=== PATIENT | male | born 1940 | race Caucasian/White ===

== ENCOUNTER → 2021-09-30 | Outpatient (CLI) | payer MEDICARE, SELFPAY ==
--- NOTE | 2021-09-30 15:22 | MRI_ITS ---
STUDY: MRI BRAIN WITH AND WITHOUT CONTRAST (ATTENTION INTERNAL AUDITORY CANALS - I.A.C.''s) REASON FOR EXAM: Male, 80 years old. DIZZINESS, ATTN IAC''S TECHNIQUE: Standardized multiplanar fat and water weighted pulse sequences were obtained. 15 mL of IV Dotarem was administered for the contrast portion of the examination. COMPARISON: None. FINDINGS: Normal bilateral temporal bones. Normal bilateral internal auditory canals. There is no demonstrated intracanalicular or cisternal vestibular schwannoma (acoustic neuroma). There is no enhancement of the bilateral VIIth or VIIIth cranial nerves. Normal bilateral cochlea, vestibules and semicircular canals. Normal size of the ventricles and extra-axial spaces for the patient''s age. Normal white matter tracts of the supratentorial brain. Normal bilateral basal ganglia. Normal thalami. Normal flow voids within the major intracranial circulation suggesting patency by spin echo criteria. Normal venous enhancement. There is no enhancing intra-axial or extra-axial abnormality. There is no extra-axial fluid accumulation. Normal sella turcica, pituitary gland, infundibular stalk, optic chiasm and hypothalamus. Normal tectal plate and pineal gland. Normal midbrain, neelam and medulla. Normal cerebellum. Normal basal cisterns. No demonstrated orbital abnormality, within the constraints of a routine brain study. Normal visualized paranasal sinuses. Normal calvarium and skull base. Normal visualized soft tissue structures. Normal visualized upper cervical spine. MRI/Brain W/WO Contrast IMPRESSION: Normal unenhanced and enhanced MRI of the bilateral internal auditory canals (I.A.C''s). Electronically Signed: Steffen Singh MD at 8:37 EDT ,
[2021-10-01 10:55] LABS: CREATININE FINGERSTICK < 0.9 mg/dL (0.70-1.30); EGFR FINGERSTICK > 60.0000 mL/min (>60)
== END | disposition home or self-care (01) ==
PROVIDERS: PCP Family Medicine; Visit Provider Otolaryngology
DX: Z01.812 Encounter for preprocedural laboratory examination (principal); R42 Dizziness and giddiness
CPT/HCPCS: 70553; A9575

== ENCOUNTER → 2023-05-30 | Outpatient (CLI) | payer MEDICARE, SELFPAY ==
[2023-05-30 17:17] LABS: Absolute Lymphocyte Count 1.51 X10^3/uL (0.83-4.51); Absolute Neutrophil Count 4.1 X10^3/uL (2.0-7.7); Basophil# 0.02 X10^3/uL; Basophil% 0.3 % (0-1); Eosinophil# 0.13 X10^3/uL; Hematocrit 40.4 % (40-54); Hemoglobin 13.2 g/dL (13.0-16.5); Lymphocyte # 1.51 X10^3/ul (0.83-4.51); Lymphocyte % 23.7 % (19-41); Mean Corp Hgb Conc 32.7 g/dL (32-36); Mean Corpuscular Hgb 30.5 pg (27.0-32.0); Mean Corpuscular Volume 93.3 fL (80-94); Mean Platelet Vol. 8.6 fl (6.2-12.0); Monocyte# 0.58 X10^3/uL; Monocyte% 9.1 % (0-10); NRBC Flagged by Analyzer 0 % (0-5); Neutrophil # 4.11 X10^3/uL (2.7-7.7); Neutrophil % 64.6 % (47-70); Platelet Count 240 K/mm3 (150-450); RBC Distribution Width SD 41.5 fl (35.1-43.9); Red Blood Count 4.33 M/mm3 (4.6-6.2); White Blood Count 6.4 K/mm3 (4.4-11.0)
[2023-05-30 17:46] LABS: ALB/GLOB Ratio 1.2 RATIO (0.9-2.4); AST(SGOT) 22 U/L (15-37); Alanine Aminotransfer ALT/SGPT 21 U/L (16-61); Albumin, Serum 3.8 g/dL (3.2-5.0); Alkaline Phosphatase 62 U/L (45-117); Anion Gap 5 (5-15); BUN 18 mg/dL (7-18); BUN/Creat Ratio 14.6 RATIO (10-20); Chloride 105 mmol/L (98-107); Cholesterol 142 mg/dL (200); Creatinine, Serum 1.23 mg/dL (0.70-1.30); EST Glomerular Filtration Rate 60 mL/min (>60); Est Glom Filt Rate - Afr Amer 72 mL/min (>60); Globulin 3.2 g/dL (2.2-4.2); Glucose 86 mg/dL (74-106); High Density Lipoprotein 47 mg/dL; PSA,Total - Annual Screen 2.61 ng/mL (0.00-4.00); Sodium Level 139 mmol/L (136-145); Thyroid Stim Hormone (TSH) 4.99 uIU/mL (0.358-3.74); Triglycerides 103 mg/dL; Very Low Density Lipoprotein 21 mg/dL (5-40)
[2023-05-30 19:49] LABS: Hepatitis C Antibody Non-Reactive (Nonreactive)
--- OUTSIDE RECORDS SUMMARY | 2023-05-31 02:58 | XMS RPT_ITS | CCD ---
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 Disease Father - Psychiatry Mother Dementia Medications: Current Outpatient Medications Medication Sig Dispense Refill - acetaminophen (TYLENOL ARTHRITIS PAIN) 650 mg CR tablet Take 650 mg by mouth four times daily. Takes 1.5 capsules 4 times a day - MILK THISTLE ORAL Take by mouth. - TURMERIC ORAL Take by mouth. - vitamin C-biotin 50 mg -1,250 mcg chew Take by mouth. - lisinopril (ZESTRIL, PRINIVIL) 20 mg tablet TAKE 1 TABLET DAILY 90 tablet 4 - triamcinolone acetonide (NASACORT AQ) 55 mcg nasal inhaler Use 2 Sprays in t (more content not included)... [facility] 04-21-2020 Note Patient Outreach (CO OCC3) DAMON DEE ([id number]) 1940 M Date Time Provider Department 04/21/20 AVIS REA During your visit today, we recorded the following information about you: Allergies As of Date: 04/21/2020 Noted Allergy Reaction BACTRIM (SULFAMETHOXAZOLE-TRIMETH*2015 2 - Rash IODINE 02/16/2016 4 - Hives MORPHINE 01/12/2016 14 - Other: See Comments Comments: nausea TETANUS ANTITOXIN 04/04/2001 4 - Hives Date Reviewed: 02/27/2020 Reviewed by: Mariaa Foster RN - Fully Assessed Order(s):SARS-COVID VACCINE 1ST DOSE APPT [[id number]] Order #: [id number] FUTURE Prescriptions as of 04/21/2020 Sig: ACETAMINOPHEN ER 650 MG TABLE* Take 650 mg by mouth four zackery* MILK THISTLE ORAL Take by mouth. TURMERIC ORAL Take by mouth. VITAMIN C 50 MG-BIOTIN 1,250 * Take by mouth. LISINOPRIL 20 MG TABLET TAKE 1 TABLET DAILY TRIAMCINOLONE ACETONIDE 55 MC* Use 2 Sprays in the nose once* CHOLECALCIFEROL (VITAMIN D3) * once daily. 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] 09/10/2001 Pain in joint, lower leg [M25.569] 09/10/2001 JOINT DERANGMNT NEC-FOREARM [[id number]] 09/10/2001 Closed fracture of part of tibia [S82.209A] 01/11/2016 Triquetral chip fracture [S62.113A] 04/22/2016 Hypertension, essential [I10] 01/28/2017 Neck pain [M54.2] 01/28/2017 Pulmonary nodule [R91.1] 04/25/2017 Chronic insomnia [F51.04] 07/20/2017 Vertigo [R42] 10/11/2017 Vasomotor rhinitis [J30.0] 04/12/2018 Chronic kidney disease (CKD), stage II (mild) [*10/11/2018 Left elbow pain [M25.522] 04/12/2019 Vitamin D deficiency [E55.9] 04/12/2019 Lipomas [D17.9] 10/01/2019 Letter Text Encounter Status:Closed by EPIC, PRODUSER on 04/24/20 [facility] Diagnosis Hypertension, essential Unspecified essential hypertension documented in this encounter [facility]* Diagnosis Hypertension, essential Unspecified essential hypertension [facility] Diagnosis Chronic kidney disease (CKD), stage II (mild)- Primary Chronic kidney disease, Stage II (mild) [facility]* Diagnosis Hypertension, essential Unspecified essential hypertension documented in this encounter [facility] Summary Purpose Family History No Family History Records FoundNo Family History Records FoundNo Family History Records FoundNo Family History Records FoundNo Family History Records FoundNo Family History Records FoundNo Family History Records Found Advance Directives Documents on File Type Date Recorded 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 Expl anation Advance Directive(s) 11/21/2017 12:07 PM Additional Source Comments (unrecognized sect ion and content) No Status Records FoundNo Status Records FoundNo Status Records FoundNo Status Records FoundNo Status Records FoundNo Status Records FoundNo Status Records Found INFORMATION SOURCE (unrecogn ized section and content) DATE CREATED AUTHOR AUTHOR'S ORGANIZ ATION 08/11/2018 [facility] DATE CREATED AUTHOR AUTHOR'S ORGANIZ ATION 11/11/2019 [facility] DATE CREATED AUTHOR AUTHOR'S ORGANIZ ATION 04/11/2020 [facility] DATE CREATED AUTHOR AUTHOR'S ORGANIZ ATION 05/28/2020 [facility] DATE CREATED AUTHOR AUTHOR'S ORGANIZ ATION 04/18/2021 [facility] DATE CREATED AUTHOR AUTHOR'S ORGANIZ ATION 12/18/2021 [facility] Source Comments (unrecognize d section and content) In the event this informatio n is protected by the Federal Confidentiality of Alcohol and Drug Abuse Patient Records regulations: The Federal rules restrict any use of the information to criminally investigate or prosecute any alcohol or drug abuse patient.[facility] the event this information is protected by the Federal Confidentiality of Alcohol and Drug Abuse Patient Records regulations: The Federal rules restrict any use of the information to criminally investigate or prosecute any alcohol or drug abuse patient.[facility] the event this information is protected by the Federal Confidentiality of Alcohol and Drug Abuse Patient Records regulations: The Federal rules restrict any use of the information to criminally investigate or prosecute any alcohol or drug abuse patient.[facility] the event this information is protected by the Federal Confidentiality of Alcohol and Drug Abuse Patient Records regulations: The Federal rules restrict any use of the information to criminally investigate or prosecute any alcohol or drug abuse patient.[facility] the event this information is protected by the Federal Confidentiality of Alcohol and Drug Abuse Patient Records regulations: The Federal rules restrict any use of the information to criminally investigate or prosecute any alcohol or drug abuse patient.[facility] the event this information is protected by the Federal Confidentiality of Alcohol and Drug Abuse Patient Records regulations: The Federal rules restrict any use of the information to criminally investigate or prosecute any alcohol or drug abuse patient.[facility] Reason for Visit (unrecogniz ed section and content) Reason Onset Date Comments Refill Request 10/15/2021 Reason Comments Results Reason Onset Date Comments Refill Request 11/26/2021 Reason Comments Lab Orders Care Teams (unrecognized sec tion and content) Ship'S Surveyor Relationship Specialty Start Date End Date Vale Parisi DO PCP - General 08/07/15 Ship'S Surveyor Relationship Specialty Start Date End Date Vale Parisi DO PCP - General 08/07/15 Ship'S Surveyor Relationship Specialty Start Date End Date Vale Parisi DO PCP - General 08/07/15 Ship'S Surveyor Relationship Specialty Start Date End Date Vale Parisi DO PCP - General 08/07/15 Ship'S Surveyor Relationship Specialty Start Date End Date Isak, Vale Jacques DO PCP - General 08/07/15 FOR RECORDS PERTAINING TO PATIENTS WHO ARE OR HAVE BEEN ENROLLED IN A CHEMICAL DEPENDENCY/SUBSTANCEABUSE PROGRAM, SOME INFORMATION MAY BE OMITTED. This clinical summary was aggregated from multiple sources. Caution should be exercised in using it in the provision of clinical care. This summary normalizes information from multiple sources, and as a consequence, information in this document may materially change the coding, format and clinical context of patient data. In addition, data may be omitted in some cases. CLINICAL DECISIONS SHOULD BE BASED ON THE PRIMARY CLINICAL RECORDS. [employer] provides no warranty or guarantee of the accuracy or completeness of information in this document.
== END | disposition home or self-care (01) ==
LOC: POLAB3 16:26
PROVIDERS: PCP Family Medicine Geriatric Medicine; Visit Provider Family Medicine Geriatric Medicine
DX: Z12.5 Encounter for screening for malignant neoplasm of prostate (principal); Z13.89 Encounter for screening for other disorder; I10 Essential (primary) hypertension; E78.5 Hyperlipidemia, unspecified; R33.9 Retention of urine, unspecified
CPT/HCPCS: 36415; 80053; 80061; 84153; 84443; 85025; 86803; 87086; G0103

== ENCOUNTER → 2023-06-26 | Outpatient (CLI) | payer MEDICARE, SELFPAY ==
--- NOTE | 2023-06-26 08:45 | AAAS_ITS ---
Reason For Study: AAA SCREENING Aorta Measurements Aorta Doppler Measurements Proximal aorta measures1.64 X 1.64cm. in cross- Peak systolic flow velocities within the proximal sectional axis. aorta measure 89.2 cm/sec. Proximal aorta measures1.65cm. in longitudinal Peak systolic flow velocities within the mid aorta axis. measure 102.7 cm/sec. Mid aorta measures1.70 X 1.70cm. in cross- Peak systolic flow velocities within the distal sectional axis. aorta measure 100.5 cm/sec. Mid aorta measures1.65cm. in longitudinal axis. Distal aorta measures1.56 X 1.39cm. in cross- sectional axis. Distal aorta measures1.42cm. in longitudinal axis. Left Iliac Artery Left iliac artery measures 1.02 X 1.02 cm. in the cross-sectional axis. Left iliac artery measures 0.97 cm. in the longitudinal axis. Peak systolic velocity in the left iliac artery measures 151.8 cm/sec. Right Iliac Artery Right iliac artery measures 1.08 X 1.06 cm. in the cross-sectional axis. Right iliac artery measures 1.06 cm. in the longitudinal axis. Peak systolic velocity in the right iliac artery measures 123.4 cm/sec. VL/AAA Screening Interpretation Summary Aorta patent, normal caliber Bilateral iliac arteries patent, normal caliber Ordering Physician: Smith Turcios Chi Referring Physician: Smith Turcios Chi Performed By: Adeline Evangelista, IRMA, RVT
== END | disposition home or self-care (01) ==
LOC: CVS 08:42
PROVIDERS: PCP Family Medicine Geriatric Medicine; Referring Provider Family Medicine Geriatric Medicine; Visit Provider Family Medicine Geriatric Medicine
DX: I71.40 Abdominal aortic aneurysm, without rupture, unspecified (principal)
CPT/HCPCS: 76706

== ENCOUNTER → 2023-06-29 | Outpatient (CLI) | payer MEDICARE, SELFPAY ==
--- NOTE | 2023-06-29 15:25 | RAD_ITS ---
STUDY: X-RAY - LUMBAR SPINE REASON FOR EXAM: Male, 82 years old. LUMBOSACRAL RADICULOPATHY TECHNIQUE: 2 view(s) of the lumbar spine were obtained. COMPARISON: None FINDINGS: Normal lumbar lordosis. There is a levoscoliosis at the thoracolumbar junction. Moderate compression of L1 and mild compression of L3. Mild spurring at the vertebral endplates. Generalized osteopenia. Normal disc space heights. The soft tissue structures are unremarkable. Calcified aorta. RAD/Lumbar Spine 2 or 3 Views IMPRESSION: Degenerative changes and generalized osteopenia of the lumbar spine. Moderate compression of L1 and mild compression of L3. Electronically Signed: Lalo Espinoza DO at 16:05 EDT ,
== END | disposition home or self-care (01) ==
PROVIDERS: PCP Family Medicine Geriatric Medicine; Referring Provider Family Medicine Geriatric Medicine; Visit Provider Family Medicine Geriatric Medicine
DX: M54.16 Radiculopathy, lumbar region (principal)
CPT/HCPCS: 72100

== ENCOUNTER → 2023-06-30 | Outpatient (CLI) | payer MEDICARE, SELFPAY | END | disposition home or self-care (01) | PROVIDERS: PCP Family Medicine Geriatric Medicine; Visit Provider Family Medicine Geriatric Medicine | DX: M81.0 Age-related osteoporosis without current pathological fracture (principal) | CPT/HCPCS: 36415; 84403 ==

== ENCOUNTER → 2023-07-13 | Outpatient (CLI) | payer MEDICARE, SELFPAY ==
--- NOTE | 2023-07-13 15:29 | BD_ITS ---
STUDY: DUAL ENERGY X-RAY ABSORPTIOMETRY / DXA REASON FOR EXAM: Male, 82 years old. M810 TECHNIQUE: Bone Mineral Density (BMD) measurements of lumbar spine and bilateral hips were obtained. COMPARISON: None. FINDINGS: Lumbar Spine (L1-L4): g/cm2 (1.003) / T-score (-0.8) / Z-score (0.5) Findings are suggestive of normal bone density with a low fracture risk. Left Femur Total: g/cm2 (0.822) / T-score (-1.4) / Z-score (-0.2) Left Femoral Neck: g/cm2 (0.626) / T-score (-2.2) / Z-score (-0.6) Right Femur Total: g/cm2 (0.777) / T-score (-1.7) / Z-score (-0.5) Right Femoral Neck: g/cm2 (0.630) / T-score (-2.2) / Z-score (-0.5) BD/Dexa Bone Density Study IMPRESSION: The patient is considered osteopenic as outlined below according to World Chacorta Organization (WHO) criteria with a high fracture risk. Reference Information: The T-score is the number of standard deviations above or below the standard which is normal for young adults at their peak bone mineral density. The World Health Organization (WHO) interprets the T-scores as follows: Above -1 Normal bone density Between -1 and -2.5 Osteopenia Equal to / or below -2.5 Osteoporosis As a practical clinical guideline, osteopenia may be graded as follows: Mild -1 through -1.5 Moderate -1.6 through -2.0 Severe -2.1 through -2.4 The Z-score is the number of standard deviations above or below age-matched controls. A Z-score of less than -1.5 would be considered abnormal. References: 1. NIH Osteoporosis and Related Bone Diseases www osteo.org 2. International Society for Clinical Densitometry www iscd.org 3. National Osteoporosis Foundation www nof.org Electronically Signed: Shay Gomez MD at 9:55 EDT ,
--- NOTE | 2023-07-13 16:14 | MRI_ITS ---
STUDY: MRI LUMBAR SPINE WITHOUT CONTRAST REASON FOR EXAM: Male, 82 years old. SCIATICA TECHNIQUE: Standardized fat and water weighted pulse sequences were obtained in the sagittal and axial planes. COMPARISON: X-ray the lumbar spine dated June 29, 2023 FINDINGS: Normal lumbar lordosis. There is a levoscoliosis of the lumbar spine. Normal conus medullaris that terminates at the T12-L1 level. Chronic compression deformity of the L1 vertebral body. No active marrow edema or fractures are present. Diffusely heterogeneous marrow signal throughout the osseous structures which should be correlated with nuclear medicine bone scan to ensure no malignant uptake is present. Rounded bright edematous signal is present in the posterior aspect of L2 vertebral body and both the superior-inferior endplates which are typically the areas for Schmorl''s node and reactive changes, but is somewhat focal, with probable acute Schmorl''s node reaction. Simple benign nerve root sleeve cysts are present at several levels. T12-L1: Mild disc space narrowing with diffuse disc desiccation and a small anterior disc spur complex.. Normal bilateral facet joints. Normal central canal and bilateral lateral recesses. Normal bilateral intervertebral neural foramina. L1-2: Mild to moderate disc space narrowing with diffuse disc desiccation and diffuse disc bulging/disc spur complex.. Normal bilateral facet joints. Normal central canal and bilateral lateral recesses. Normal bilateral intervertebral neural foramina. L2-3: Diffuse disc desiccation with mild central and moderate posterior disc space narrowing and diffuse disc bulging. Mild endplate spurring. Moderate central canal stenosis. Left lateral recess stenosis with nerve root compression. Moderate facet joint and ligamenta flava hypertrophy. Moderate bilateral foraminal stenosis with nerve root compression. L3-4: Diffuse disc desiccation with mild posterior disc space narrowing and slight annular bulging. Mild endplate spurring. Moderate facet joint and ligament of flavum hypertrophy asymmetric to the left. Left lateral recess stenosis with nerve root compression. Mild central canal stenosis and mild compression on the posterior lateral aspect of the thecal sac from the enlarged facet joint. Moderate left foraminal stenosis with nerve root compression. Nerve root sleeve cyst in the right neural foramen. L4-5: Moderate disc space narrowing with diffuse disc desiccation and mild posterior annular bulging combined with moderate facet joint and ligament of flavum hypertrophy causing mild to moderate central canal stenosis and bilateral lateral recess stenosis. Moderate bilateral foraminal stenosis with nerve root compression. L5-S1: Normal endplates. Diffuse disc desiccation with mild posterior disc space narrowing but no bulge or herniation of the disc. Small annular tear in the right paracentral region of the disc. Normal bilateral facet joints. Normal central canal and bilateral lateral recesses. Normal bilateral intervertebral neural foramina. Normal visualized sacral ala. Normal visualized paraspinous soft tissue structures. MRI/Spine Lumbar (Routine) IMPRESSION: 1. Multilevel degenerative changes, as described above. 2. Diffusely heterogeneous marrow signal throughout the osseous structures which should be correlated with nuclear medicine bone scan to ensure no malignant uptake is present. Rounded bright edematous signal is present in the posterior aspect of L2 vertebral body and both the superior-inferior endplates which are typically the areas for Schmorl''s node and reactive changes, but is somewhat focal, with probable acute Schmorl''s node reaction. Electronically Signed: Shorty Bunn MD at 14:32 EDT ,
[2023-07-13 18:53] LABS: Thyroid Stim Hormone (TSH) 6.33 uIU/mL (0.358-3.74)
== END | disposition home or self-care (01) ==
PROVIDERS: PCP Family Medicine Geriatric Medicine; Referring Provider Family Medicine Geriatric Medicine; Visit Provider Family Medicine Geriatric Medicine
DX: M81.0 Age-related osteoporosis without current pathological fracture (principal); M54.16 Radiculopathy, lumbar region; E03.9 Hypothyroidism, unspecified
CPT/HCPCS: 36415; 72148; 84443

== ENCOUNTER → 2023-08-03 | Outpatient (CLI) | payer MEDICARE, SELFPAY ==
--- NOTE | 2023-08-03 09:37 | NM_ITS ---
CLINICAL: Male, 82 years old. COMPRESSION FX UNSURE OF AGE, PAIN AND STIFFNESS,VERTIGO, OSTEOPOROSIS WHOLE BODY NUCLEAR BONE SCAN TECHNIQUE: Following the IV administration of 27 mCi of Tc MDP, whole body bone imaging was performed with a gamma camera following a three hour delay. COMPARISON STUDIES : NM - None. CR - Not available for review at this time. CT - Not available for review at this time. MR - comparison is made with prior MRI of the lumbar spine dated July 13, 2023. US - Not available for review at this time. FINDINGS: There is a normal concentration of radiopharmaceutical throughout the axial and appendicular skeletal system without either a focal decrease or increase in uptake. Minimal levoscoliosis of the lumbar spine. Findings suggestive of right total knee replacement. NM/Bone Scan Whole Body IMPRESSION: No acute abnormality is seen. Electronically Signed: Shay Gomez MD at 12:37 EDT ,
== END | disposition home or self-care (01) ==
LOC: NM 09:33
PROVIDERS: PCP Family Medicine Geriatric Medicine; Referring Provider Family Medicine Geriatric Medicine; Visit Provider Family Medicine Geriatric Medicine
DX: S32.000A Wedge compression fracture of unspecified lumbar vertebra, initial encounter for closed fracture (principal); M81.0 Age-related osteoporosis without current pathological fracture; X58.XXXA Exposure to other specified factors, initial encounter
CPT/HCPCS: 78306; A9503

== ENCOUNTER → 2023-08-31 | Outpatient (CLI) | payer MEDICARE, SELFPAY ==
[2023-08-31 15:44] LABS: Absolute Lymphocyte Count 1.85 X10^3/uL (0.83-4.51); Absolute Neutrophil Count 5.9 X10^3/uL (2.0-7.7); Basophil# 0.03 X10^3/uL; Basophil% 0.3 % (0-1); Eosinophil# 0.16 X10^3/uL; Eosinophils% 1.8 % (0-5); Hematocrit 44.6 % (40-54); Hemoglobin 14.2 g/dL (13.0-16.5); Lymphocyte # 1.85 X10^3/ul (0.83-4.51); Lymphocyte % 21.3 % (19-41); Mean Corp Hgb Conc 31.8 g/dL (32-36); Mean Corpuscular Hgb 30.7 pg (27.0-32.0); Mean Corpuscular Volume 96.5 fL (80-94); Mean Platelet Vol. 8.5 fl (6.2-12.0); Monocyte# 0.76 X10^3/uL; Monocyte% 8.7 % (0-10); NRBC Flagged by Analyzer 0 % (0-5); Neutrophil # 5.87 X10^3/uL (2.7-7.7); Neutrophil % 67.7 % (47-70); Platelet Count 266 K/mm3 (150-450); RBC Distribution Width CV 12.5 % (11.6-14.6); RBC Distribution Width SD 44.2 fl (35.1-43.9); Red Blood Count 4.62 M/mm3 (4.6-6.2); White Blood Count 8.7 K/mm3 (4.4-11.0)
[2023-08-31 16:24] LABS: ALB/GLOB Ratio 1.2 RATIO (0.9-2.4); AST(SGOT) 22 U/L (15-37); Alanine Aminotransfer ALT/SGPT 25 U/L (16-61); Alkaline Phosphatase 57 U/L (45-117); Anion Gap 6 (5-15); BUN 27 mg/dL (7-18); Calcium,Total 9.9 mg/dL (8.5-10.1); Chloride 101 mmol/L (98-107); Creatinine, Serum 1.42 mg/dL (0.70-1.30); EST Glomerular Filtration Rate 51 mL/min (>60); Est Glom Filt Rate - Afr Amer 61 mL/min (>60); Globulin 3.4 g/dL (2.2-4.2); Glucose 102 mg/dL (74-106); Potassium 4.8 mmol/L (3.5-5.1); Protein, Total 7.4 g/dL (6.4-8.2); Sodium Level 135 mmol/L (136-145); T4 Total, Thyroxin 8.6 ug/dL (4.5-12.1); Thyroid Stim Hormone (TSH) 7.37 uIU/mL (0.358-3.74)
[2023-08-31 16:25] LABS: T3 Total - Triiodothyronine 1.05 ng/mL (0.6-1.81); Vitamin D,25 Hydroxy 62.4 ng/mL
== END | disposition home or self-care (01) ==
LOC: LAB 15:04
PROVIDERS: PCP Family Medicine Geriatric Medicine; Referring Provider Family Medicine Geriatric Medicine; Visit Provider Family Medicine Geriatric Medicine
DX: I10 Essential (primary) hypertension (principal); E55.9 Vitamin D deficiency, unspecified
CPT/HCPCS: 36415; 80053; 82306; 84436; 84443; 84480; 85025

== ENCOUNTER → 2023-09-28 | Outpatient (CLI) | payer MEDICARE, SELFPAY ==
[2023-09-28 15:58] LABS: Absolute Neutrophil Count 4.7 X10^3/uL (2.0-7.7); Basophil# 0.03 X10^3/uL; Basophil% 0.4 % (0-1); Eosinophil# 0.11 X10^3/uL; Eosinophils% 1.6 % (0-5); Hematocrit 41.7 % (40-54); Hemoglobin 13.5 g/dL (13.0-16.5); Lymphocyte % 18.8 % (19-41); Mean Corp Hgb Conc 32.4 g/dL (32-36); Mean Corpuscular Hgb 31.3 pg (27.0-32.0); Mean Corpuscular Volume 96.8 fL (80-94); Mean Platelet Vol. 8.5 fl (6.2-12.0); Monocyte# 0.72 X10^3/uL; Monocyte% 10.4 % (0-10); NRBC Flagged by Analyzer 0 % (0-5); Neutrophil # 4.73 X10^3/uL (2.7-7.7); Neutrophil % 68.7 % (47-70); Platelet Count 272 K/mm3 (150-450); RBC Distribution Width CV 12.3 % (11.6-14.6); RBC Distribution Width SD 44.2 fl (35.1-43.9); Red Blood Count 4.31 M/mm3 (4.6-6.2); White Blood Count 6.9 K/mm3 (4.4-11.0)
[2023-09-28 16:09] LABS: Magnesium 2.2 mg/dL (1.6-2.6)
[2023-09-28 16:11] LABS: Anion Gap 5 (5-15); BUN 18 mg/dL (7-18); BUN/Creat Ratio 16.2 RATIO (10-20); Calcium,Total 9.6 mg/dL (8.5-10.1); Chloride 100 mmol/L (98-107); Creatinine, Serum 1.11 mg/dL (0.70-1.30); EST Glomerular Filtration Rate 67 mL/min (>60); Est Glom Filt Rate - Afr Amer 81 mL/min (>60); Glucose 90 mg/dL (74-106); Sodium Level 134 mmol/L (136-145)
[2023-09-28 16:28] LABS: International Normalized Ratio 1.3; Prothrombin Time (Protime)PT. 15.8 SECONDS (11.7-14.9)
[2023-09-28 16:29] LABS: Partial Thromboplast Time 36.8 Seconds (24.1-36.2)
[2023-09-28 16:52] LABS: HIV - WCH Non-Reactive (Nonreactive); Hepatitis B Surface Antibody Non-Reactive; Hepatitis C Antibody Non-Reactive (Nonreactive)
[2023-09-30 06:13] LABS: Hepatitis A AB, Total Positive (Negative)
== END | disposition home or self-care (01) ==
LOC: POLAB3 14:53
PROVIDERS: Anesthesiology; Orthopaedic Surgery Orthopaedic Surgery of the Spine; PCP Family Medicine Geriatric Medicine; Visit Provider Family Medicine Geriatric Medicine
DX: Z01.818 Encounter for other preprocedural examination (principal); I10 Essential (primary) hypertension
CPT/HCPCS: 36415; 80048; 83735; 85025; 85610; 85730; 86703; 86706; 86708; 86803; 87081

== ENCOUNTER → 2023-10-13 | Outpatient (CLI) | payer MEDICARE, SELFPAY | END | disposition home or self-care (01) | LOC: LAB 14:52 | PROVIDERS: PCP Family Medicine Geriatric Medicine; Referring Provider Orthopaedic Surgery Orthopaedic Surgery of the Spine; Visit Provider Orthopaedic Surgery Orthopaedic Surgery of the Spine | DX: Z01.818 Encounter for other preprocedural examination (principal) | CPT/HCPCS: 36415; 84443; 86850; 86900; 86901 ==

== ENCOUNTER 2023-10-17 10:32 | Observation (INO) | payer MEDICARE, SELFPAY ==
[2023-10-17] VITALS (14 sets, daily range): BP systolic 103–173; BP diastolic 62–90; PULSE 66–94; RESP 16–18; TEMP 36.6–37.1; O2SAT 95–99; BMI 23.7
[2023-10-17] MEDS: Magnesium 1 GM over 15 mins IV (06:02)
[2023-10-17] MEDS: Acetaminophen 500 MG Tablet 1000 MG PO ×3 (06:03→20:34)
[2023-10-17] MEDS: Lactated Ringers 1,000 ML 15 ML IV (06:07)
[2023-10-17 06:48] LABS: Bedside Glucose 162 mg/dL (74-106)
--- NOTE | 2023-10-17 07:20 | PRE.ANES_ITS ---
ASA Classification* ASA Classification ASA Classification: 2 Assessment & Plan Anesthesia* Anesthesia Assessment Anesthesia Assessment: Discussed sedation and/or anesthesia options, risks, benefits, and alternatives with patient/parents/legal guardian/POA. Questions invited. The patient/parents/legal guardian/POA seems to understand and agrees to proceed with anesthesia plan. Reviewed the physical assessment, medical history, allergy history and patient home medications list prior to surgery/procedure/anesthetic and documented any changes. Performed airway and anesthesia risk assessments. Anesthesia Type Anesthesia Type: General (see written pre anesthesia record for full assessment) Anesthesia Focused Assessment* Temperature: 98.6 F Pulse Rate: 76 Blood Pressure: 173/84 Respiratory Rate: 18 Pulse Ox: 97 Airway Assessment Mouth opens: >3 cm Mallampati Score: II Focused Labs Anesthesia Preop lab: CBC WBC 6.9 K/mm3 (4.4-11.0) 09/28/23 14:54 RBC 4.31 M/mm3 (4.6-6.2) L 09/28/23 14:54 Hgb 13.5 g/dL (13.0-16.5) 09/28/23 14:54 Hct 41.7 % (40-54) 09/28/23 14:54 Plt Count 272 K/mm3 (150-450) 09/28/23 14:54 CHEMISTRY Potassium 4.0 mmol/L (3.5-5.1) 09/28/23 14:54 Sodium 134 mmol/L (136-145) L 09/28/23 14:54 Magnesium 2.2 mg/dL (1.6-2.6) 09/28/23 14:56 BUN 18 mg/dL (7-18) 09/28/23 14:54 Creatinine 1.11 mg/dL (0.70-1.30) 09/28/23 14:54 Glucose 90 mg/dL (74-106) 09/28/23 14:54 POC Glucose 162 mg/dL (74-106) H 10/17/23 05:56 TSH 6.50 uIU/mL (0.358-3.74) H 10/13/23 14:58 COAG PT 15.8 SECONDS (11.7-14.9) H 09/28/23 14:56 Pre-Assessment Diagnosis/Proposed Procedure Planned Operative Procedure(s): ERAS LAMINECTOMY L2-3 AND BILAT LAMINECTOMY L4-5 Anesthesia History 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 When Was Last Pacemaker Check QUESTION #4 FULL TEXT: You/Your Family Experience fever (hyperthermia) with Anesthesia Last Oral Intake Last Oral intake: Last Oral Intake NPO since 00:00 10/17/23 06:08 Meds taken in AM with sips of Yes 10/17/23 06:08 water? Meds patient instructed to take am of surgery PONV PONV - machine candle molder: PONV - machine candle molder Female No 09/28/23 10:45 HX of Motion Sickness Yes 09/28/23 10:45 HX of N/V After Surgery No 09/28/23 10:45 Non-Smoker Yes 09/28/23 10:45 Duration of Surgery greater Yes 09/28/23 10:45 than 60 minutes Number of Risk Factors 3 09/28/23 10:45 PONV Score Moderate Risk 09/28/23 10:45 Height & Weight Height & Weight: Anesthesia: Height & Weight Height 5 ft 8 in 10/17/23 06:08 Weight: 70.76 kg 10/17/23 06:08 Body Mass Index (BMI) 23.7 10/17/23 06:08 Respiratory Assessment Respiratory Assessment - machine candle molder: Respiratory Tract Infection Hx - machine candle molder Hx Respiratory Tract Infection No 09/28/23 10:45 STOP Sleep Apnea STOP Sleep Apnea - machine candle molder: STOP Sleep Apnea - machine candle molder Hx Hypertension Yes: NO MED FOR 1 MONTH 09/28/23 10:45 Hx Sleep Apnea No 09/28/23 10:45 CPAP BIPAP Do you snore loudly (louder No 09/28/23 10:45 than talking or can be heard Do you often feel tired/ Yes 09/28/23 10:45 fatigued/ sleepy during daytime? Has anyone observed you stop No 09/28/23 10:45 breathing during sleep? STOP Results Positive 09/28/23 10:45 QUESTION #5 FULL TEXT : Do you snore loudly (louder than talking or can be heard through closed doors)? Tobacco Use History Tobacco Use History - machine candle molder: Tobacco Use History - machine candle molder Tobacco Use Smoking Status Former smoker 09/28/23 10:45 Hx Tobacco Use No 09/28/23 10:45 Years Smoking Packs Smoked per Day Smoking Cessation Date was Yes - quit smoking within 15 09/28/23 10:45 within the last 15 years years Hx Smoking Cessation Date Hx Smoking Cessation No 09/28/23 10:45 Counseling Hematologic Medial History Hematologic Hx - machine candle molder: Hematologic Medical Hx - accounting specialist Hx of Blood Transfusion No 09/28/23 10:45 Hx of Transfusion in last 3 No 09/28/23 10:45 Months Date of Last Transfusion (if within last 3 months) Ever experience any problems No 09/28/23 10:45 with transfusion(s)? Specify any problems Hx of Preganancy in last 3 N/A 09/28/23 10:45 Months Nurse Filling Out Transfusion DSCHRIBER 09/28/23 10:45 & Questions: Date: 09/28/23 09/28/23 10:45 Time: 10:47 09/28/23 10:45 Patient unable to answer at this time (ie. confused, unrespo /Reproduction History /Reproductive History - machine candle molder: /Reproductive Hx- machine candle molder Hx Now No 09/28/23 10:45 Gestational Age (in weeks): EDC: Hx Hx Para Hx Section SAB No 09/28/23 10:45 Active Medications Active Medications: Current Medications Generic Name Dose Route Start Last Admin Trade Name Freq PRN Reason Stop Dose Admin Acetaminophen 1,000 mg 10/17/23 07:30 10/17/23 06:03 Acetaminophen 500 Mg Tablet PO 10/17/23 07:31 1,000 mg X1 ONE Administration Cefazolin Sodium 2 gm/ Sodium 110 mls @ 150 mls/hr 10/17/23 07:30 Chloride IV 10/17/23 08:13 PREOP ONE Magnesium Sulfate 1 gm/ 102 mls @ 408 mls/hr 10/17/23 07:30 10/17/23 06:29 Dextrose IV 10/17/23 07:44 Infused X1 ONE Infusion Lactated Ringer's 1,000 mls @ 15 mls/hr 10/17/23 06:15 10/17/23 06:07 IV 15 mls/hr .Q48H SKIP Administration Insulin Human Lispro 1 - 6 unit 10/17/23 07:30 Insulin Lispro 100 Unit/Ml Insuln.Pen SC 10/17/23 13:30 Q4H PRN PRN BG>/= 180, SEE PROTOCOL [facility] History Loss of hearing Wears glasses Depression Marijuana use History of steroid therapy Thyroid disease Arthritis Walker as ambulation aid Bladder disease History of renal disease Easy bruising Restless legs Back pain Injury of head and neck Syncope Heartburn Former smoker History of pain when walking History of edema History of stress test Cardiology follow-up encounter Hypertension History of irregular heartbeat Hx of fracture of wrist Hx of fracture of lower leg History of shoulder fracture Right ankle pain Home Medications ?Medication ?Instructions ?Recorded ?Last Taken ?Type ascorbate calcium (vitamin C) 500 500 mg PO DAILY 07/20/23 10/16/23 History mg tablet cholecalciferol (vitamin D3) 10 10 mcg PO DAILY 07/20/23 10/16/23 History mcg (400 unit) capsule milk thistle 150 mg capsule 150 mg PO BID 07/20/23 10/16/23 History vit C 250 mg-vit E 200 unit-zinc 1 cap PO BID 07/20/23 10/16/23 History ox 12.5 fz-ulutyj-kkjjnw-zeax capsule (ICaps AREDS2) multivitamin (Daily Multi-Vitamin 1 tab PO DAILY 09/28/23 10/16/23 History tablet) saw palm 160 mg-vit E 100 2 tab PO DAILY 09/28/23 10/16/23 History unit-selen 100 vza-fgcd-ibjnom-pygeum tablet (Prostate Health) thyroid (pork) 15 mg tablet 30 mg PO DAILY 10/16/23 10/17/23 History (Hayden Thyroid) Allergy/AdvReac Type Severity Reaction Status Date / Time Tetanus Vaccines and Toxoid Allergy Swelling Verified 10/17/23 06:05 morphine AdvReac Nausea/Vom/ Verified 10/17/23 06:05 Diarrhea Family History Grandmother Cancer Mother Heart disease Thyroid disorder Surgical History History of prior ablation treatment Hx of colonoscopy Hx of right cataract extraction Hx of left cataract extraction Hx of elbow surgery H/O elbow surgery History of total knee arthroplasty Social History household members: spouse Smoking Status: Former smoker alcohol intake: never Review of Systems (Anesthesia) ROS Narrative System reviewed and no additional complaints, except as documented.
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
[2023-10-17] MEDS: Cefazolin 2 GM in 0.9% Normal Saline (100mL Bag) 100 ML IV ×3 (07:40→23:56)
--- NOTE | 2023-10-17 08:02 | RAD_ITS ---
PROCEDURE: Laminectomy. DATE OF EXAMINATION: October 17, 2023. INDICATION: Male, 83 years old. Low back pain. FLUOROSCOPY TIME (if supplied): (8 seconds) minutes/seconds. 1.71 mGy.. 2 fluoroscopic images were obtained. RAD/Lumbar Spine 2 or 3 Views IMPRESSION: Intraoperative imaging provided for L4-L5 laminectomy. Electronically Signed: Shay Gomez MD at 12:38 EDT ,
[2023-10-17] MEDS: Dexamethasone IV Preserv Free 10 MG/ML VIAL (09:56)
[2023-10-17] MEDS: Ropivacaine 0.5% 30 ML Vial (10:28)
[2023-10-17] MEDS: Lidocaine 1% (30 ml sdv) 30 ML Vial (10:28)
--- NOTE | 2023-10-17 10:37 | PCM.OPRPT ---
Report of Operation Date of Procedure: 10/17/23 Description of Surgical Findings:: Preoperative diagnosis: L2-3 central lateral recess stenosis bilateral, L4-5 bilateral lateral recess stenosis, neurogenic claudication Postoperative diagnosis: Same Name of procedure: L2-3 open laminectomy, L4-5 bilateral laminotomy . L2-3 laminectomy CPT 74320 . L4-5 bilateral laminotomy CPT 98250, modifier 50 Attending Surgeon: Dr. Josh Burnett Estimated blood loss: 50 mL Anesthesia: General Indications: Patient is a 83-year-old gentleman who presented with low back pain and severe right worse than left lower extremity radiation, with difficulty walking distances and neurogenic claudication. MRI revealed multilevel lumbar disc degeneration with stenosis most severe at L2-3 and L4-5 which is central as well as bilateral lateral recess. At L3-4, patient had left lateral recess stenosis but no left anterior thigh symptoms. All options of treatment were discussed which included continued nonoperative treatment measures like rest physical therapy, injections. After prolonged nonsurgical treatment, patient requested surgical intervention for laminectomy. All risks and benefits associated with the procedure were explained to the patient. The risks include but are not limited to infection, bleeding, injury to nerves and vessels, persistent paresthesia, incidental dural tear, recurrent disc herniation, spinal instability and need for fusion or other procedures in future, persistent pain, persistent weakness and numbness, etc. Procedure: The patient was identified in the preoperative holding suite using Unique patient identifiers. Skin was marked, consent was reviewed, and all questions were answered. The patient was then brought back to the operative room. A surgical timeout was performed to make sure correct procedure was being done on the correct patient and all operative room staff were on the same page. General endotracheal anesthesia was then given to the patient. The patient was then turned prone onto a Rickey table over a Casa frame. The back was prepped and draped in usual fashion. Preoperative antibiotic was given. A final timeout was then again done just before starting the procedure. An 18-gauge spinal needle was inserted and level was identified. An incision was then carried out approximately 3 inch length in the midline. Bovie was utilized to dissect through the subcutaneous tissue up to the fascia. The fascia was bovied at the spinous process. Subperiosteal dissection was carried out along the both side of the spinous process and the lamina. This dissection was stopped at the level of the medial capsule of the facet joint. Lateral edge of the pars was also identified. A Chelle was then placed under the inferior edge of the lamina and a C-arm lateral view was repeated. The level was confirmed to be the L4-5 interspace. Exposure was completed all the way from L2-3 down to L4-5 segments. A Clark retractor of appropriate depth was then placed to provide retraction starting at L2-3. A bone cutter was used to remove the spinous process. [employer] bone scalpel was then utilized to first create a score along the area of the laminectomy. Care was taken to preserve at least 1 cm of bone from the lateral border of the pars. The bone scalpel was then advanced to perform the cuts along this score. The lamina was then removed with the help of Gibson and rongeurs. The flavum was utilized to protect the dura and superior articular process was carefully from the flavum. Partial medial facetectomy was performed to provide adequate lateral recess decompression. Small portion of superior L3 lamina was also removed with help of Kerrisons. All of the flavum was eventually removed. Adequate foraminotomy was done bilaterally. Once decompression was adequately assessed with Garfield in both exiting and transversing foramina bilaterally, irrigation was done with normal saline. Attention was then directed to the L4-5 level. Bilateral laminotomy was performed with the help of scores created by bone scalpel medially and laterally leaving at least 1 cm of the pars bilaterally. At the superior edge of the laminotomy was completed with the bur. Flavum was again carefully removed and adequate decompression of the exiting L4 traversing nerve roots was achieved. Adequate foraminotomy was done bilaterally. Irrisept was kept in the wound for 1 minute and then rinsed with saline. 10 mg of preservative-free dexamethasone was then sprinkled over the dura and traversing nerve roots bilaterally at both levels. A small piece of Gelfoam was then placed over the bony windows. The Clark retractor was then removed. And closure was done in layers, 0 Vicryl for the deep fascia, 2-0 Vicryl for subcutaneous tissue, and artemio for the skin. The deep fascial layer was closed in a watertight fashion with interrupted 1 Vicryl and running 0 strata fix. The skin closure was augmented with artemio. 2 x 2 gauze was then placed over the wound covered with Tegaderm. The patient was then turned supine onto a hospital bed. The patient was extubated and taken to PACU in stable condition. The patient tolerated the procedure well and no complications occurred. Estimated blood loss for the entire surgery was 50 mL. No instrumentation was utilized in this case. No dural tear occurred in this case. I was present for the entirety of the case and performed the surgery myself. Surgeon: Josh Burnett Admit VTE Documentation VTE Mechan Device Prophylaxis: SCD's Procedures Musculoskeletal [id number]: Other Procedure See Report
--- NOTE | 2023-10-17 10:45 | PCM.POST.ANE ---
Anesthesia: Postop Eval I Current Vital Signs Temperature: 98 F Pulse Rate: 75 Blood Pressure: 162/78 Respiratory Rate: 16 Pulse Ox: 96 Oxygen Delivery Method: Room Air Assessment Airway patent: Yes Spontaneous unlabored respirations: Yes Mental status: Awake and Calm nausea: No Vomiting: No Anesthesia Complication: No Fluid Hydration Crystalloid volume administer (ml): 1,800 Total IV fluid infused: 1,800 Progress Note Anesthesia document: Postop Eval 1 completed: Yes
--- NOTE | 2023-10-17 12:53 | POSTOPAN2_ITS ---
Anesthesia Postop Eval I Sum Postop Eval Completion status Anesthesia document: Postop Eval 1 completed: Yes Anesthesia Postop Eval I Summary Anesthesia Postop Eval I Summary: Anesthesia Postop Eval I: Assessment Summary Airway patent Yes 10/17/23 10:57 FLANGING MACHINE OPERATOR.[email or web address] Spontaneous unlabored Yes 10/17/23 10:57 FLANGING MACHINE OPERATOR.GDOTT respirations Mental status Awake,Calm 10/17/23 10:57 FLANGING MACHINE OPERATOR.GDOTT nausea No 10/17/23 10:57 FLANGING MACHINE OPERATOR.GDOTT Vomiting No 10/17/23 10:57 FLANGING MACHINE OPERATOR.GDOTT Anesthesia Postop Eval I: Fluid Summary Crystalloid volume administer 1,800 10/17/23 10:57 FLANGING MACHINE OPERATOR.GDOTT (ml) Colloids volume administered ( ml) Blood Product volume administered (ml) Total IV fluid infused 1,800 10/17/23 10:57 FLANGING MACHINE OPERATOR.GDOTT Anesthesia Postop Eval I: Summary Notes Anesthesia Complication No 10/17/23 10:57 FLANGING MACHINE OPERATOR.GDOTT Anesthesia Complication Comment: Post-operative progress note Anesthesia: Postop Eval II Evaluation Mental status: Awake Pain Level: 0 nausea: No Vomiting: No
--- NOTE | 2023-10-17 12:53 | PCM.POSTANE2 ---
Anesthesia Postop Eval I Sum Postop Eval Completion status Anesthesia document: Postop Eval 1 completed: Yes Anesthesia Postop Eval I Summary Anesthesia Postop Eval I Summary: Anesthesia Postop Eval I: Assessment Summary Airway patent Yes 10/17/23 10:57 ROTARY [email or web address].[email or web address] Spontaneous unlabored Yes 10/17/23 10:57 ROTARY DRILLER.GDOTT respirations Mental status Awake,Calm 10/17/23 10:57 ROTARY DRILLER.GDOTT nausea No 10/17/23 10:57 ROTARY DRILLER.GDOTT Vomiting No 10/17/23 10:57 ROTARY DRILLER.GDOTT Anesthesia Postop Eval I: Fluid Summary Crystalloid volume administer 1,800 10/17/23 10:57 ROTARY DRILLER.GDOTT (ml) Colloids volume administered ( ml) Blood Product volume administered (ml) Total IV fluid infused 1,800 10/17/23 10:57 ROTARY DRILLER.GDOTT Anesthesia Postop Eval I: Summary Notes Anesthesia Complication No 10/17/23 10:57 ROTARY DRILLER.GDOTT Anesthesia Complication Comment: Post-operative progress note Anesthesia: Postop Eval II Evaluation Mental status: Awake Pain Level: 0 nausea: No Vomiting: No
[2023-10-17] MEDS: Methocarbamol 500 MG Tablet 1000 MG PO ×3 (13:53→20:33)
[2023-10-17] MEDS: Ensure Surgery 237 ML LIQUID PO (18:13)
[2023-10-17] MEDS: oxyCODONE 5 MG Tablet PO (20:32)
[2023-10-17] MEDS: Senna/Docusate Sodium 1 Tablet 2 TABLET PO (20:33)
--- NOTE | 2023-10-17 20:33 | PCM.PN.HOSP ---
Reason for Visit Reason for Visit: Diagnoses Encounter for other preprocedural examination (10/17/23) Subjective Subjective 83-year-old male history of hypothyroidism presented to [facility] 10/17/2023 for lumbar laminectomy with Dr. Burnett. Hospitalist consulted for postop medical management. Patient evaluated at bedside and reports little pain in his legs otherwise feeling well, getting his appetite back, has no other acute or focal complaints Objective Data Objective Data Vital Signs: Vital Signs Temp Pulse Resp BP Pulse Ox O2 Del Method O2 Flow Rate 98.7 F 94 18 158/66 H 95 Room Air 2 10/17/23 20:02 10/17/23 20:02 10/17/23 20:02 10/17/23 20:02 10/17/23 20:02 10/17/23 20:02 10/17/23 14:05 FiO2 38 10/17/23 11:00 Oxygen Flow Rate (L/min) 2 Oxygen Delivery Method Room Air Weight: 70.76 kg Body Mass Index (BMI) 23.7 Intake & Output: Intake and Output for Last 24 Hours 10/15/23 10/16/23 10/17/23 23:59 23:59 23:59 Intake Total 1622 / 1622 Output Total 300 / 300 Balance 1322 / 1322 Lab / Micro Data Labs: Laboratory Results - last 24 hr 10/17/23 05:56: POC Glucose 162 H Radiography Diagnostic Testing: Radiology Impression Lumbar Spine X-Ray 10/17/23 08:02 IMPRESSION: Intraoperative imaging provided for L4-L5 laminectomy. Electronically Signed: Shay Gomez MD at 12:38 EDT , Physical Exam Narrative General: Alert, oriented, no apparent distress HEENT: Atraumatic, normocephalic Eyes: Anicteric, normal conjunctiva, extraocular movements grossly intact Neck: Supple Respiratory: Clear to auscultation bilaterally, normal respiratory effort Cardiovascular: Regular rate and rhythm GI: Soft, nontender, nondistended Extremities: No edema Musculoskeletal: Moving all extremities Neuro: No overt focal neurological deficits Skin: No rashes appreciated Psych: Cooperative Assessment & Plan Assessment/Plan (1) Hypothyroid: (2) Spinal stenosis at L4-L5 level: PLAN: Plan # Hypothyroidism -Continue home thyroid supplementation with [place] Thyroid -Did have slightly elevated TSH several days ago, may need repeated with PCP to assess for any further adjustments or need to begin Synthroid # Lumbar stenosis -Status post lumbar laminectomy with Dr. Burnett -Management per primary #DVT ppx: Management per primary Virginie Nolasco MD Time spent in the patient's overall evaluation,decision-making process, review of diagnostic data, adjustment of management, discussion with other providers, nursing nursing and ancillary staff involved in patient's care documentation,15 Minutes Charges/Coding Visit Charges Office Visits / Consults: [id number] OV L2 Est 10min
[2023-10-17] MEDS: Multivitamin (Healthy Eyes) Capsule 1 CAP PO (20:34)
[2023-10-18] MEDS: oxyCODONE 5 MG Tablet PO (03:59)
[2023-10-18 04:44] VITALS: BP 168/88; PULSE 88; RESP 16; TEMP 37; O2SAT 97
[2023-10-18] MEDS: Acetaminophen 500 MG Tablet 1000 MG PO ×2 (05:14→13:54)
[2023-10-18 06:51] LABS: Hematocrit 33.2 % (40-54); Hemoglobin 10.9 g/dL (13.0-16.5); Mean Corp Hgb Conc 32.8 g/dL (32-36); Mean Corpuscular Hgb 30.4 pg (27.0-32.0); Mean Corpuscular Volume 92.5 fL (80-94); Platelet Count 369 K/mm3 (150-450); RBC Distribution Width CV 12.2 % (11.6-14.6); RBC Distribution Width SD 40.9 fl (35.1-43.9); Red Blood Count 3.59 M/mm3 (4.6-6.2)
[2023-10-18 07:22] LABS: Anion Gap 4 (5-15); BUN 18 mg/dL (7-18); BUN/Creat Ratio 16.5 RATIO (10-20); Calcium,Total 8.9 mg/dL (8.5-10.1); Chloride 105 mmol/L (98-107); Creatinine, Serum 1.09 mg/dL (0.70-1.30); EST Glomerular Filtration Rate 69 mL/min (>60); Est Glom Filt Rate - Afr Amer 83 mL/min (>60); Estimated Creatinine Clearance 48.81 ml/min; Glucose 116 mg/dL (74-106); Sodium Level 136 mmol/L (136-145)
[2023-10-18 08:02] VITALS: BP 163/68; PULSE 74; RESP 16; TEMP 36.9; O2SAT 97
--- NOTE | 2023-10-18 08:10 | PCM.PN.HOSP ---
Subjective Subjective Doing well, no issues overnight. Pain is controlled. Has not had a bowel movement yet Objective Data Objective Data Vital Signs: Vital Signs Temp Pulse Resp BP Pulse Ox O2 Del Method O2 Flow Rate 98.5 F 74 16 163/68 H 97 Room Air 2 10/18/23 08:02 10/18/23 08:02 10/18/23 08:02 10/18/23 08:02 10/18/23 08:02 10/18/23 08:02 10/17/23 14:05 FiO2 38 10/17/23 11:00 Oxygen Flow Rate (L/min) 2 Oxygen Delivery Method Room Air Weight: 155 lb 15.985 oz Body Mass Index (BMI) 23.7 Intake & Output: Intake and Output for Last 24 Hours 10/17/23 10/18/23 10/19/23 03:59 03:59 03:59 Intake Total 2016.50 / 2015.50 Output Total 300 / 300 700 / 700 Balance 1716.50 / 1716.50 -700 / -700 Lab / Micro Data 10/18/23 06:14 10/18/23 06:14 Labs: Laboratory Results - last 24 hr 10/18/23 06:14: WBC 14.0 H, RBC 3.59 L, Hgb 10.9 L, Hct 33.2 L, MCV 92.5, MCH 30.4, MCHC 32.8, RDW Std Deviation 40.9, RDW Coeff of Brianna 12.2, Plt Count 369, MPV 8.0, Sodium 136, Potassium 4.0, Chloride 105, Carbon Dioxide 27.0, Anion Gap 4 L, BUN 18, Creatinine 1.09, Estim Creat Clear Calc 48.81, Est GFR (MDRD) Af Amer 83, Est GFR (MDRD) Non-Af 69, BUN/Creatinine Ratio 16.5, Glucose 116 H, Calcium 8.9 Radiography Diagnostic Testing: Radiology Impression Lumbar Spine X-Ray 10/17/23 08:02 IMPRESSION: Intraoperative imaging provided for L4-L5 laminectomy. Electronically Signed: Shay Gomez MD at 12:38 EDT , Physical Exam Narrative General: Alert, Oriented x3, Cooperative, No apparent distress HEENT: Atraumatic, PERRLA, EOMI, Normocephalic Oral: Moist Mucosa Neck: Supple, No JVD Lungs: Clear to auscultation, Normal air movement, No rhonchi, No wheeze, No rales Cardiovascular: Regular rate, Regular Rhythm, Normal S1, Normal S2, No murmurs Abdomen: Soft, Non Tender, Non-Distended, No Hepato-splenomegaly Extremities: No edema, Capillary Refill Less than 3 Seconds Skin: No rashes, No breakdown Musculoskeletal: No Tenderness to Palpation of Joints or Extremities Neurological: No focal neurological deficits, Motor Exam 5/5 strength throughout, Sensory exam intact to light touch and pain Psych/Mental Status: Normal Affect, Appropriate Assessment & Plan Assessment/Plan (1) Hypothyroid: (2) Spinal stenosis at L4-L5 level: PLAN: Plan 1. Lumbar stenosis status postlaminectomy on 10/17/2023 ? Pain management per primary ? PT/OT ? DVT prophylaxis per primary ? Medically cleared for discharge, leukocytosis is reactive and renal function is at baseline, will sign off 2. Hypothyroidism ? Stable ? Continue with home medication DVT: Per primary Charges/Coding Visit Charges Office Visits / Consults: [id number] OV L3 Est 20min
[2023-10-18] MEDS: Methocarbamol 500 MG Tablet 1000 MG PO ×2 (10:14→13:54)
[2023-10-18] MEDS: Senna/Docusate Sodium 1 Tablet 2 TABLET PO (10:14)
[2023-10-18] MEDS: Multivitamin (Healthy Eyes) Capsule 1 CAP PO (10:15)
[2023-10-18] MEDS: Multivitamins,Therapeutic Tablet 1 TABLET PO (10:15)
[2023-10-18] MEDS: Ascorbic Acid 500 MG Tablet PO (10:15)
--- NOTE | 2023-10-18 11:10 | CASEMGMT ---
Met with pt to complete RESENDEZ form. RESENDEZ form explained to pt at this time who voiced understanding and signed form. Original form placed in pt?s chart and copy provided to the pt. Ladonna Chong RN CM
--- NOTE | 2023-10-18 12:11 | CASEMGMT ---
SAFIA MARKS Assessment Face to Face with patient for initial transition planning/care coordination assessment. SAFIA MARKS introduced self and role at [facility], pt voices understanding. Pt is A&Ox4 and is resting comfortably in bed and is calm. Care providers, pharmacy, and demographics verified. Admitting dx: ERAS Laminectomy L2-3 PCP: Tam Specialists: Lex (Ortho) Preferred Pharmacy: [facility] [place] Insurance: [facility] Prescription Benefit: Yes LNOK: Phyllis Londono (W) Living Arrangements: Pt lives with his in a two story home with two steps to enter ADLs/IADLs: Ind Transportation: Self, . Denies concerns DME: FWW. Cane. BP Monitor. Denies further needs HHC/SNF: States Hx of HHC through the [facility] in 2015 and Hx at [facility] in [place] Pt?s goal: Home Plan: Home no needs vs Home with OP Tx. 6-Click is 18. PT cleared the pt. Pt denies HHC or SNF needs. Pt states that he would be willing to attend OP Tx in [place] if the MD recommends this. Pt states that he will set this up per himself. Report given to PEPITO BAIG CM. Ladonna Chong RN, CM
--- NOTE | 2023-10-18 13:08 | PCM.PN.ORT ---
Subjective Subjective Postop day 1 status post lumbar laminectomy. Pain well-controlled. Walked hallways with PT. Objective Data Objective Data Vital Signs: Vital Signs Temp Pulse Resp BP Pulse Ox O2 Del Method O2 Flow Rate 98.5 F 74 16 163/68 H 97 Room Air 2 10/18/23 08:02 10/18/23 08:02 10/18/23 08:02 10/18/23 08:02 10/18/23 08:02 10/18/23 08:02 10/17/23 14:05 FiO2 38 10/17/23 11:00 Oxygen Flow Rate (L/min) 2 Oxygen Delivery Method Room Air Weight: 155 lb 15.985 oz Body Mass Index (BMI) 23.7 Intake & Output: Intake and Output for Last 24 Hours 10/16/23 10/17/23 10/18/23 23:59 23:59 23:59 Intake Total 1889.25 / 1889.25 127.25 / 127.25 Output Total 300 / 300 900 / 900 Balance 1589.25 / 1589.25 -772.75 / -772.75 Lab / Micro Data 10/18/23 06:14 10/18/23 06:14 Labs: Laboratory Results - last 24 hr 10/18/23 06:14: WBC 14.0 H, RBC 3.59 L, Hgb 10.9 L, Hct 33.2 L, MCV 92.5, MCH 30.4, MCHC 32.8, RDW Std Deviation 40.9, RDW Coeff of Brianna 12.2, Plt Count 369, MPV 8.0, Sodium 136, Potassium 4.0, Chloride 105, Carbon Dioxide 27.0, Anion Gap 4 L, BUN 18, Creatinine 1.09, Estim Creat Clear Calc 48.81, Est GFR (MDRD) Af Amer 83, Est GFR (MDRD) Non-Af 69, BUN/Creatinine Ratio 16.5, Glucose 116 H, Calcium 8.9 Physical Exam Narrative Dressing?CDI. Neurologic evaluation of lower extremity shows 5 x 5 power normal shows normal sensations in all dermatomes. Assessment & Plan Assessment/Plan (1) Status post laminectomy: PLAN: Plan Postop day 1 status post lumbar laminectomy. Pain is controlled. Walked with PT. Okay to discharge and follow-up in clinic in 2 weeks.
--- NOTE | 2023-10-18 13:45 | CASEMGMT ---
RN CM NOTE: Discharge order is in. Per Dr Burnett, no OP therapy recommended. Pt made aware. Pt denies having other discharge needs/concerns. Lorraine TANGN RN CM
== END 2023-10-18 16:00 | disposition home or self-care (01) ==
LOC: SDC 11:05 → MS3 11:05
PROVIDERS: Admitting Provider Orthopaedic Surgery Orthopaedic Surgery of the Spine; PCP Family Medicine Geriatric Medicine; Referring Provider Orthopaedic Surgery Orthopaedic Surgery of the Spine; Visit Provider Orthopaedic Surgery Orthopaedic Surgery of the Spine
PROC: (CPT 63030; principal; 2023-10-17 07:00)
DX: M48.062 Spinal stenosis, lumbar region with neurogenic claudication (principal); M51.36 Other intervertebral disc degeneration, lumbar region; M41.86 Other forms of scoliosis, lumbar region; E03.9 Hypothyroidism, unspecified; Z87.891 Personal history of nicotine dependence; I10 Essential (primary) hypertension; R26.2 Difficulty in walking, not elsewhere classified; M85.80 Other specified disorders of bone density and structure, unspecified site; Z79.899 Other long term (current) drug therapy; Z79.890 Hormone replacement therapy
CPT/HCPCS: 63047; 63030; 36415; 72100; 76000; 80048; 82962; 85027; 94668; 96365; 96366; 97116; 97162; 97166; 97530; 99221; J7120; G0378; J2405; J3475

== ENCOUNTER → 2023-11-28 | Outpatient (CLI) | payer MEDICARE, SELFPAY ==
[2023-11-28 14:31] LABS: Absolute Neutrophil Count 5.2 X10^3/uL (2.0-7.7); Basophil# 0.02 X10^3/uL; Basophil% 0.3 % (0-1); Eosinophil# 0.16 X10^3/uL; Eosinophils% 2.1 % (0-5); Hematocrit 42.5 % (40-54); Hemoglobin 13.2 g/dL (13.0-16.5); Lymphocyte % 19.7 % (19-41); Mean Corp Hgb Conc 31.1 g/dL (32-36); Mean Corpuscular Hgb 29.9 pg (27.0-32.0); Mean Corpuscular Volume 96.4 fL (80-94); Mean Platelet Vol. 8.5 fl (6.2-12.0); Monocyte# 0.68 X10^3/uL; Monocyte% 8.9 % (0-10); NRBC Flagged by Analyzer 0 % (0-5); Neutrophil # 5.23 X10^3/uL (2.7-7.7); Neutrophil % 68.5 % (47-70); Platelet Count 269 K/mm3 (150-450); RBC Distribution Width CV 12.8 % (11.6-14.6); RBC Distribution Width SD 45.5 fl (35.1-43.9); Red Blood Count 4.41 M/mm3 (4.6-6.2); White Blood Count 7.6 K/mm3 (4.4-11.0)
[2023-11-28 16:44] LABS: Vitamin D,25 Hydroxy 51.2 ng/mL
[2023-11-28 23:01] LABS: ALB/GLOB Ratio 1.3 RATIO (0.9-2.4); AST(SGOT) 19 U/L (15-37); Alanine Aminotransfer ALT/SGPT 17 U/L (16-61); Albumin, Serum 4.1 g/dL (3.2-5.0); Alkaline Phosphatase 67 U/L (45-117); Anion Gap 7 (5-15); BUN 16 mg/dL (7-18); BUN/Creat Ratio 16.9 RATIO (10-20); Calcium,Total 9.8 mg/dL (8.5-10.1); Chloride 102 mmol/L (98-107); Creatinine, Serum 0.95 mg/dL (0.70-1.30); EST Glomerular Filtration Rate 81 mL/min (>60); Est Glom Filt Rate - Afr Amer 98 mL/min (>60); Globulin 3.1 g/dL (2.2-4.2); Glucose 104 mg/dL (74-106); Potassium 3.9 mmol/L (3.5-5.1); Protein, Total 7.2 g/dL (6.4-8.2); Sodium Level 137 mmol/L (136-145)
== END | disposition home or self-care (01) ==
LOC: POLAB3 14:17
PROVIDERS: PCP Family Medicine Geriatric Medicine; Visit Provider Family Medicine Geriatric Medicine
DX: I10 Essential (primary) hypertension (principal); E55.9 Vitamin D deficiency, unspecified
CPT/HCPCS: 36415; 80053; 82306; 84443; 85025

== ENCOUNTER 2024-02-21 14:57 | Observation (INO) | payer MEDICARE, SELFPAY ==
[2024-02-08 13:40] LABS: Hematocrit 42.1 % (40-54); Hemoglobin 13.3 g/dL (13.0-16.5); Mean Corp Hgb Conc 31.6 g/dL (32-36); Mean Corpuscular Hgb 29.9 pg (27.0-32.0); Mean Corpuscular Volume 94.6 fL (80-94); Mean Platelet Vol. 8.2 fl (6.2-12.0); Platelet Count 357 K/mm3 (150-450); RBC Distribution Width CV 12.2 % (11.6-14.6); RBC Distribution Width SD 42.4 fl (35.1-43.9); Red Blood Count 4.45 M/mm3 (4.6-6.2); White Blood Count 7.5 K/mm3 (4.4-11.0)
[2024-02-08 14:11] LABS: AST(SGOT) 15 U/L (15-37); Alanine Aminotransfer ALT/SGPT 14 U/L (16-61); Albumin, Serum 3.6 g/dL (3.2-5.0); Alkaline Phosphatase 72 U/L (45-117); Bilirubin, Direct 0.14 mg/dL (0.00-0.30); Globulin 3.5 g/dL (2.2-4.2); Protein, Total 7.1 g/dL (6.4-8.2)
[2024-02-08 14:44] LABS: International Normalized Ratio 1.2; Prothrombin Time (Protime)PT. 15.1 SECONDS (11.7-14.9)
[2024-02-08 14:45] LABS: Partial Thromboplast Time 31.4 Seconds (24.1-36.2)
[2024-02-21] VITALS (12 sets, daily range): BP systolic 132–167; BP diastolic 56–86; PULSE 63–83; RESP 16–18; TEMP 36.1–37.1; O2SAT 96–98; BMI 24.1
--- NOTE | 2024-02-21 12:40 | PRE.ANES_ITS ---
ASA Classification* ASA Classification ASA Classification: 2 Assessment & Plan Anesthesia* Anesthesia Assessment Anesthesia Assessment: Discussed sedation and/or anesthesia options, risks, benefits, and alternatives with patient/parents/legal guardian/POA. Questions invited. The patient/parents/legal guardian/POA seems to understand and agrees to proceed with anesthesia plan. Reviewed the physical assessment, medical history, allergy history and patient home medications list prior to surgery/procedure/anesthetic and documented any changes. Performed airway and anesthesia risk assessments. Anesthesia Type Anesthesia Type: General Anesthesia Focused Assessment* Airway Assessment Mouth opens: >3 cm Mallampati Score: II Focused Labs Anesthesia Preop lab: CBC WBC 7.5 K/mm3 (4.4-11.0) 02/08/24 13:11 RBC 4.45 M/mm3 (4.6-6.2) L 02/08/24 13:11 Hgb 13.3 g/dL (13.0-16.5) 02/08/24 13:11 Hct 42.1 % (40-54) 02/08/24 13:11 Plt Count 357 K/mm3 (150-450) 02/08/24 13:11 CHEMISTRY Potassium 3.9 mmol/L (3.5-5.1) 11/28/23 14:19 Sodium 137 mmol/L (136-145) 11/28/23 14:19 Magnesium 2.2 mg/dL (1.6-2.6) 09/28/23 14:56 BUN 16 mg/dL (7-18) 11/28/23 14:19 Creatinine 0.95 mg/dL (0.70-1.30) 11/28/23 14:19 Glucose 104 mg/dL (74-106) 11/28/23 14:19 POC Glucose 162 mg/dL (74-106) H 10/17/23 05:56 TSH 3.520 uIU/mL (0.358-3.740) 02/08/24 13:11 COAG PT 15.1 SECONDS (11.7-14.9) H 02/08/24 13:11 Pre-Assessment Diagnosis/Proposed Procedure Planned Operative Procedure(s): TURP Anesthesia History Anesthesia History - advertising specialist: Anesthesia History - advertising specialist Hx Hospitalization No 02/07/24 13:06 Any Problems With Anesthesia No 02/07/24 13:06 Cholinesterase deficiency No 02/07/24 13:06 You/Your Family Experience No 02/07/24 13:06 fever (hyperthermia) with Relationship Recent Exposure to Contagious No 11/01/23 13:49 Disease Does patient have nerve No 02/07/24 13:06 stimulator Patient instructed to have device shut off --Does patient have Pacemaker or ICD? When Was Last Pacemaker Check QUESTION #4 FULL TEXT: You/Your Family Experience fever (hyperthermia) with Anesthesia Last Oral Intake Last Oral intake: Last Oral Intake NPO since Meds taken in AM with sips of water? Meds patient instructed to take am of surgery PONV PONV - advertising specialist: PONV - advertising specialist Female No 02/07/24 13:06 HX of Motion Sickness Yes 02/07/24 13:06 HX of N/V After Surgery No 02/07/24 13:06 Non-Smoker Yes 02/07/24 13:06 Duration of Surgery greater Yes 02/07/24 13:06 than 60 minutes Number of Risk Factors 3 02/07/24 13:06 PONV Score Moderate Risk 02/07/24 13:06 Height & Weight Height & Weight: Anesthesia: Height & Weight Height 5 ft 8 in 02/20/24 08:06 Weight: 68.946 kg 02/20/24 08:06 Respiratory Assessment Respiratory Assessment - advertising specialist: Respiratory Tract Infection Hx - advertising specialist Hx Respiratory Tract Infection No 02/07/24 13:06 STOP Sleep Apnea STOP Sleep Apnea - advertising specialist: STOP Sleep Apnea - advertising specialist Hx Hypertension Yes: CONTROLLED WITH MED 02/07/24 13:06 Hx Sleep Apnea No 02/07/24 13:06 CPAP BIPAP Do you snore loudly (louder No 02/07/24 13:06 than talking or can be heard Do you often feel tired/ Yes 02/07/24 13:06 fatigued/ sleepy during daytime? Has anyone observed you stop No 02/07/24 13:06 breathing during sleep? STOP Results Positive 02/07/24 13:06 QUESTION #5 FULL TEXT : Do you snore loudly (louder than talking or can be heard through closed doors)? Tobacco Use History Tobacco Use History - advertising specialist: Tobacco Use History - advertising specialist Tobacco Use Smoking Status Former smoker 02/07/24 13:06 Hx Tobacco Use No 02/07/24 13:06 Years Smoking Packs Smoked per Day Smoking Cessation Date was No - quit smoking greater 02/07/24 13:06 within the last 15 years than 15 years ago Hx Smoking Cessation Date Hx Smoking Cessation No 02/07/24 13:06 Counseling Hematologic Medial History Hematologic Hx - advertising specialist: Hematologic Medical Hx - clinical documentation consultant Hx of Blood Transfusion No 02/07/24 13:06 Hx of Transfusion in last 3 No 02/07/24 13:06 Months Date of Last Transfusion (if within last 3 months) Ever experience any problems No 02/07/24 13:06 with transfusion(s)? Specify any problems Hx of Preganancy in last 3 N/A 02/07/24 13:06 Months Nurse Filling Out Transfusion DSCHRIBER 02/07/24 13:06 & Questions: Date: 02/07/24 02/07/24 13:06 Time: 13:09 02/07/24 13:06 Patient unable to answer at this time (ie. confused, unrespo /Reproduction History /Reproductive History - advertising specialist: /Reproductive Hx- advertising specialist Hx Now Gestational Age (in weeks): EDC: Hx Hx Para Hx Section SAB No 02/07/24 13:06 Active Medications Active Medications: Current Medications Generic Name Dose Route Start Last Admin Trade Name Freq PRN Reason Stop Dose Admin Cefazolin Sodium 2 gm/ N/A 20 mls @ 400 mls/hr 02/21/24 14:55 IV 02/21/24 14:57 PREOP ONE Lactated Ringer's 1,000 mls @ 15 mls/hr 02/21/24 12:00 IV 02/24/24 06:39 .Q48H [facility] Protocol PFSH Medical History Loss of hearing Wears glasses Depression Marijuana use Thyroid disease Arthritis Bladder disease Easy bruising Restless legs Back pain Injury of head and neck Syncope Heartburn Former smoker History of edema History of stress test Cardiology follow-up encounter Hypertension History of irregular heartbeat Hx of fracture of wrist Hx of fracture of lower leg History of shoulder fracture Right ankle pain Home Medications ?Medication ?Instructions ?Recorded ?Last Taken ?Type ascorbate calcium (vitamin C) 500 500 mg PO DAILY 05/02/24 07/29/24 History mg tablet thyroid (pork) 15 mg tablet 45 mg PO QHS 10/16/23 10/17/23 History ([place] Thyroid) sennosides 8.6 mg-docusate sodium 2 tab PO BID PRN constipation 7 10/18/23 Unknown Rx 50 mg tablet (Stimulant Laxative days #28 tabs Plus) finasteride 5 mg tablet 5 mg PO DAILY 02/07/24 Unknown History lisinopril 20 mg tablet 20 mg PO DAILY 02/07/24 Unknown History Allergy/AdvReac Type Severity Reaction Status Date / Time Tetanus Vaccines and Toxoid Allergy Swelling Verified 02/07/24 13:03 morphine AdvReac Nausea/Vom/ Verified 02/07/24 13:03 Diarrhea Family History Grandmother Cancer Mother Heart disease Thyroid disorder Surgical History History of lumbar laminectomy History of prior ablation treatment Hx of colonoscopy Hx of right cataract extraction Hx of left cataract extraction Hx of elbow surgery H/O elbow surgery History of total knee arthroplasty Social History household members: spouse Smoking Status: Former smoker alcohol intake: never Review of Systems (Anesthesia) ROS Narrative System reviewed and no additional complaints, except as documented.
[2024-02-21] MEDS: Lactated Ringers 1,000 ML 15 ML IV (12:54)
[2024-02-21] MEDS: Cefazolin 2 GM in Syringe IV (13:50)
--- NOTE | 2024-02-21 13:50 | PROS_PTH ---
PATIENT: DEL DEE LOC: MS3 U#:[id number] AGE/SX: 83/M ROOM: CO325 RE02/21/[address]: Dr. Pedro Keating MD : 1940 BED: 1 DIS: 02/22/2024 SPEC #: [id number] RECD: 02/22/24 07:52 STATUS: VIOLET HAMILTON #: [id number] JASON: 02/21/24 13:[address]: Pedro Keating DEPT: SURGICAL PATHOLOGY RECD BY: Sandra Sanchez ENTERED: 02/22/24 10:21 SP TYPE: TURP OTHR DR: Dr. mSith Turcios MD Tissues: Prostate, NOS Procedures: Surgery Specimen Level IV HEADER OPERATION: Transurethral resection prostate PRE-OP DIAGNOSIS: Urinary frequency TISSUE SUBMITTED: Prostate chips MICROSCOPIC DIAGNOSIS Prostate, transurethral resection: Benign nodular hyperplasia, primarily stromal type. Mild chronic inflammation. AM.mr 02/23/2024 MICROSCOPIC DESCRIPTION Slides are reviewed. GROSS DESCRIPTION Received is one container labeled with the patient's name and designated prostate tissue. The specimen consists of multiple irregular fragments of pink-allison, rubbery, soft tissue that in aggregate weigh 13.9 gm and measure in aggregate 6.0 x 6.0 x 0.8 cm. The entire specimen is submitted in ten cassettes. AM. 02/22/2024 TC:5 CPT: 57843
--- NOTE | 2024-02-21 14:58 | DCINST_ITS ---
Discharge Instructions Diet Discharge Diet: No restrictions DC O2, CPAP, BIPAP needs Additional Home O2 Discharge instructions: No Dressing / Incision Discharge Activity: Return to Normal Activity and May Not Drive (while taking narcotic pain medications.) Dressing / Incision Call your doctor if you observe: Fever of 101 or Higher Follow Up Care Please Follow Up With: Pedro Keating MD When: Call [phone] for an appointment Test Results: Test results from this visit will be discussed in further detail at your follow- up appointment, if applicable. Discharge Plan Admission Primary Reason for Your Visit: turp Attending Provider: Pedro Keating Primary Care Provider: Smiht Turcios Chi Instructions Print Language: Lithuanian Discharge Orders/Prescriptions Prescriptions: New ciprofloxacin HCl [Cipro] 500 mg tablet 500 mg PO BID Qty: 14 0RF Continued sennosides-docusate sodium [Stimulant Laxative Plus] 8.6-50 mg Tablet 2 tab PO BID PRN (Reason: constipation) 7 Days Qty: 28 0RF lisinopril 20 mg tablet 20 mg PO DAILY Held ascorbate calcium (vitamin C) 500 mg tablet 500 mg PO DAILY Hold Instructions: Resume on 03/06/24. thyroid (pork) [[place] Thyroid] 15 mg tablet 45 mg PO QHS Hold Instructions: Resume on 03/06/24. Rx Instructions: STARTED 10/03/23 Discontinued finasteride 5 mg tablet 5 mg PO DAILY Referrals / Follow Up: Pedro Keating MD [Med Staff - Active Staff] - Smith Turcios Chi, MD [Primary Care Provider] - Disposition Disposition (needs filled in before D/C Order can be placed): Home, Self Care
--- NOTE | 2024-02-21 14:58 | OP.PCM_ITS ---
Operative Report (Standard) Operative Information Surgery/Procedure Performed: Transurethral section of prostate Surgeon: Pedro Keating Date of Procedure: 02/21/24 Procedure Start Time: 13:59 Procedure Stop Time: 14:44 Pre-Operative Diagnosis: BPH with obstruction Post-Operative Diagnosis: the same Select all DRAINS/GRAFTS/IMPLANTS that apply: Drains Drain details: 22 Kinyarwanda three-way Diaz Type of Anesthesia: General Estimated Blood Loss: Minimal Specimen collected: Yes Description of specimen(s) removed: Prostate tissue Description of surgery: In the preoperative setting I discussed with the patient how the surgery would be done with expect afterwards. We discussed how a prostate resection is done and we discussed the risk of the surgery including, bleeding, infection, retrograde ejaculation, changes with ejaculation or intercourse,. We discussed the possibility that the resection of the prostate may not alleviate his urinary symptoms. We discussed the small risk of developing scar tissue along the urethral channel and strictures. We also discussed the chance of the prostate could grow back and he may need further surgery or treatment in the future for prostate problems. Patient was taken back to the operating room, timeout procedure was performed, he was identified and marked and placed on the operating room table. He underwent general anesthesia. He was placed in dorsolithotomy position. Penis and testicles were prepped and draped in usual sterile fashion. Went into the bladder using the visual obturator with a resectoscope. Once inside the bladder identified the right and left ureteral orifice. I then identified the prostate and the anatomy of the prostate. I marked out the area of the sphincter and the verumontanum was identified. I then proceeded with the prostate resection first resected the median lobe. And then resected the right lobe of the prostate. Then to resect the left lobe of the prostate. I then resected the apical tissue of the prostate. This was a complete resection of all obstructive tissue to improve voiding and relieve obstruction. I then made sure that there was no injury to the sphincter or the verumontanum was still intact. At the end of the resection all the chips were Ellik out of the bladder. I then identified the left and right ureteral orifice and these were confirmed to be in good position and effluxing and not injured. The resectoscope was removed, a 22 Kinyarwanda catheter was placed into the bladder on continuous irrigation. And the urine was fairly light pink color and draining normally. He was taken back to the PACU in good condition. 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
--- NOTE | 2024-02-21 14:58 | PCM.HP.STD ---
HPI - General General Date of Service: 02/21/24 Chief Complaint: BPH with obstruction HPI Narrative DEL DEE, is a 83 M who presents for transurethral resection of the prostate he has significant obstruction and difficulty with urination PFS Medical History Loss of hearing Wears glasses Depression Marijuana use Thyroid disease Arthritis Bladder disease Easy bruising Restless legs Back pain Injury of head and neck Syncope Heartburn Former smoker History of edema History of stress test Cardiology follow-up encounter Hypertension History of irregular heartbeat Hx of fracture of wrist Hx of fracture of lower leg History of shoulder fracture Right ankle pain Home Medications ?Medication ?Instructions ?Recorded ?Last Taken ?Type ascorbate calcium (vitamin C) 500 500 mg PO DAILY 07/20/23 10/16/23 History mg tablet thyroid (pork) 15 mg tablet 45 mg PO QHS 10/16/23 10/17/23 History ([facility] Thyroid) sennosides 8.6 mg-docusate sodium 2 tab PO BID PRN constipation 7 10/18/23 Unknown Rx 50 mg tablet (Stimulant Laxative days #28 tabs Plus) lisinopril 20 mg tablet 20 mg PO DAILY 02/07/24 Unknown History ciprofloxacin HCl 500 mg tablet 500 mg PO BID #14 tabs 02/21/24 Unknown Rx (Cipro) Allergy/AdvReac Type Severity Reaction Status Date / Time Tetanus Vaccines and Toxoid Allergy Swelling Verified 02/21/24 12:46 morphine AdvReac Nausea/Vom/ Verified 02/21/24 12:46 Diarrhea Family History Grandmother Cancer Mother Heart disease Thyroid disorder Surgical History History of lumbar laminectomy History of prior ablation treatment Hx of colonoscopy Hx of right cataract extraction Hx of left cataract extraction Hx of elbow surgery H/O elbow surgery History of total knee arthroplasty Social History household members: spouse Smoking Status: Former smoker alcohol intake: never Vital Signs Vital Signs Vital Signs: 02/21/24 12:47 02/21/24 12:47 Temperature 97.1 F L Temperature Source Temporal Pulse Rate 83 Respiratory Rate 16 Respiratory Pattern Normal Blood Pressure 152/78 H Blood Pressure Mean 102 Blood Pressure Source Monitor Blood Pressure Position Semi-Fowlers Blood Pressure Location Left Arm Pulse Ox 98 Oxygen Delivery Method Room Air Weight Weight: 72.121 kg Body Mass Index (BMI) 24.1 Results Lab / Micro Data 02/08/24 13:11
--- NOTE | 2024-02-21 15:00 | PCM.POST.ANE ---
Anesthesia: Postop Eval I Current Vital Signs Temperature: 97 F Pulse Rate: 72 Blood Pressure: 167/56 Respiratory Rate: 18 Pulse Ox: 96 Oxygen Delivery Method: Room Air Assessment Airway patent: Yes Spontaneous unlabored respirations: Yes Mental status: Asleep nausea: No Vomiting: No Anesthesia Complication: No Fluid Hydration Crystalloid volume administer (ml): 600 Total IV fluid infused: 600 Progress Note Anesthesia document: Postop Eval 1 completed: Yes
--- NOTE | 2024-02-21 15:32 | POSTOPAN2_ITS ---
Anesthesia Postop Eval I Sum Postop Eval Completion status Anesthesia document: Postop Eval 1 completed: Yes Anesthesia Postop Eval I Summary Anesthesia Postop Eval I Summary: Anesthesia Postop Eval I: Assessment Summary Airway patent Yes 02/21/24 15:00 [email or web address] Spontaneous unlabored Yes 02/21/24 15:00 [email or web address] respirations Mental status Asleep 02/21/24 15:00 [email or web address] nausea No 02/21/24 15:00 [email or web address] Vomiting No 02/21/24 15:00 [email or web address] Anesthesia Postop Eval I: Fluid Summary Crystalloid volume administer 600 02/21/24 15:00 [email or web address] (ml) Colloids volume administered ( ml) Blood Product volume administered (ml) Total IV fluid infused 600 02/21/24 15:00 [email or web address] Anesthesia Postop Eval I: Summary Notes Anesthesia Complication No 02/21/24 15:00 [email or web address] Anesthesia Complication Comment: Post-operative progress note Anesthesia: Postop Eval II Evaluation Mental status: Awake and Calm Pain Level: 1 nausea: No Vomiting: No Complications Anesthesia Complication: No
--- NOTE | 2024-02-21 15:32 | PCM.POSTANE2 ---
Anesthesia Postop Eval I Sum Postop Eval Completion status Anesthesia document: Postop Eval 1 completed: Yes Anesthesia Postop Eval I Summary Anesthesia Postop Eval I Summary: Anesthesia Postop Eval I: Assessment Summary Airway patent Yes 02/21/24 15:00 FIELD MARKETING COORDINATOR.[email or web address] Spontaneous unlabored Yes 02/21/24 15:00 FIELD MARKETING COORDINATOR.[email or web address] respirations Mental status Asleep 02/21/24 15:00 FIELD MARKETING COORDINATOR.CAROL nausea No 02/21/24 15:00 FIELD MARKETING COORDINATOR.CAROL Vomiting No 02/21/24 15:00 FIELD MARKETING COORDINATOR.CAROL Anesthesia Postop Eval I: Fluid Summary Crystalloid volume administer 600 02/21/24 15:00 FIELD MARKETING COORDINATOR.[email or web address] (ml) Colloids volume administered ( ml) Blood Product volume administered (ml) Total IV fluid infused 600 02/21/24 15:00 FIELD MARKETING COORDINATOR.CAROL Anesthesia Postop Eval I: Summary Notes Anesthesia Complication No 02/21/24 15:00 FIELD MARKETING COORDINATOR.[email or web address] Anesthesia Complication Comment: Post-operative progress note Anesthesia: Postop Eval II Evaluation Mental status: Awake and Calm Pain Level: 1 nausea: No Vomiting: No Complications Anesthesia Complication: No
--- NOTE | 2024-02-21 15:53 | SUR.PHASEII ---
waiting for room
[2024-02-21] MEDS: Acetaminophen 325 MG Tablet 650 MG PO (21:34)
[2024-02-21] MEDS: Docusate Sodium 100 MG Capsule 200 MG PO (21:35)
[2024-02-21] MEDS: Ciprofloxacin 500 MG Tablet PO (21:35)
[2024-02-22 03:40] VITALS: BP 155/71; PULSE 71; RESP 16; TEMP 36.8; O2SAT 96
--- NOTE | 2024-02-22 07:19 | PCM.PN.GU ---
Subjective Subjective Urine is light bro color we can DC Diaz patient can go home today after he voids Objective Data Objective Data Vital Signs: Vital Signs Temp Pulse Resp BP Pulse Ox O2 Del Method 98.2 F 71 16 155/71 H 96 Room Air 02/22/24 03:40 02/22/24 03:40 02/22/24 03:40 02/22/24 03:40 02/22/24 03:40 02/22/24 03:40 Oxygen Delivery Method Room Air Weight: 72.121 kg Body Mass Index (BMI) 24.1 Intake & Output: Intake and Output for Last 24 Hours 02/20/24 02/21/24 02/22/24 23:59 23:59 23:59 Intake Total 570 / 570 Output Total 775 / 775 2600 / 2600 Balance -205 / -205 -2600 / -2600 Lab / Micro Data 02/08/24 13:11
[2024-02-22 07:26] VITALS: O2SAT 94
[2024-02-22 08:54] VITALS: BP 148/65; PULSE 79; RESP 16; TEMP 36.8; O2SAT 94
--- NOTE | 2024-02-22 08:59 | NURSING ---
pt requesting to take home sun after removed. explained to pt that the sun is a bio waste and needs to be disposed of in trash at hospital.
[2024-02-22] MEDS: Docusate Sodium 100 MG Capsule 200 MG PO (09:11)
[2024-02-22] MEDS: Ciprofloxacin 500 MG Tablet PO (09:11)
[2024-02-22] MEDS: Lisinopril 20 MG Tablet PO (09:12)
[2024-02-22] MEDS: Acetaminophen 325 MG Tablet 650 MG PO (09:14)
--- NOTE | 2024-02-22 10:25 | CASEMGMT ---
SAFIA CM into pt room, pt lying in bed in no distress. Pt states he uses a cane at night. He lives with a woman for the last 61 years. Pt states he is typically I at home. Pt has a rollator if he should need it. Pt denies any further homegoing needs.
== END 2024-02-22 14:21 | disposition home or self-care (01) ==
LOC: SDC 16:38 → MS3 16:38
PROVIDERS: Anesthesiology; Admitting Provider Urology; PCP Family Medicine Geriatric Medicine; Referring Provider Urology; Visit Provider Urology
PROC: (CPT 52601; principal; 2024-02-21 13:40)
DX: N40.1 Benign prostatic hyperplasia with lower urinary tract symptoms (principal); I10 Essential (primary) hypertension; Z87.891 Personal history of nicotine dependence; N13.8 Other obstructive and reflux uropathy; Z79.899 Other long term (current) drug therapy; E03.9 Hypothyroidism, unspecified; Z79.890 Hormone replacement therapy; R35.0 Frequency of micturition; R35.1 Nocturia; R39.14 Feeling of incomplete bladder emptying; M41.9 Scoliosis, unspecified; Z86.2 Personal history of diseases of the blood and blood-forming organs and certain disorders involving the immune mechanism
CPT/HCPCS: 52601; 00914; 36415; 80076; 84443; 85027; 85610; 85730; 88305; 94668; 99221; A4216; G0378; J2405

== ENCOUNTER → 2024-02-27 | Outpatient (CLI) | payer MEDICARE, SELFPAY ==
[2024-02-27 15:57] LABS: Absolute Lymphocyte Count 1.84 X10^3/uL (0.83-4.51); Absolute Neutrophil Count 5.8 X10^3/uL (2.0-7.7); Basophil# 0.03 X10^3/uL; Basophil% 0.3 % (0-1); Eosinophil# 0.18 X10^3/uL; Hematocrit 42.6 % (40-54); Hemoglobin 13.1 g/dL (13.0-16.5); Lymphocyte # 1.84 X10^3/ul (0.83-4.51); Lymphocyte % 20.8 % (19-41); Mean Corp Hgb Conc 30.8 g/dL (32-36); Mean Corpuscular Hgb 29.3 pg (27.0-32.0); Mean Corpuscular Volume 95.3 fL (80-94); Mean Platelet Vol. 8.4 fl (6.2-12.0); Monocyte# 0.92 X10^3/uL; Monocyte% 10.4 % (0-10); NRBC Flagged by Analyzer 0 % (0-5); Neutrophil # 5.84 X10^3/uL (2.7-7.7); Neutrophil % 66.3 % (47-70); Platelet Count 374 K/mm3 (150-450); RBC Distribution Width CV 11.9 % (11.6-14.6); RBC Distribution Width SD 41.1 fl (35.1-43.9); Red Blood Count 4.47 M/mm3 (4.6-6.2); White Blood Count 8.8 K/mm3 (4.4-11.0)
[2024-02-27 16:51] LABS: Vitamin D,25 Hydroxy 34.9 ng/mL
[2024-02-27 16:56] LABS: ALB/GLOB Ratio 0.9 RATIO (0.9-2.4); AST(SGOT) 15 U/L (15-37); Alanine Aminotransfer ALT/SGPT 15 U/L (16-61); Albumin, Serum 3.6 g/dL (3.2-5.0); Alkaline Phosphatase 90 U/L (45-117); Anion Gap 6 (5-15); BUN 17 mg/dL (7-18); BUN/Creat Ratio 12.4 RATIO (10-20); Calcium,Total 9.8 mg/dL (8.5-10.1); Chloride 103 mmol/L (98-107); Creatinine, Serum 1.37 mg/dL (0.70-1.30); EST Glomerular Filtration Rate 53 mL/min (>60); Est Glom Filt Rate - Afr Amer 64 mL/min (>60); Globulin 3.8 g/dL (2.2-4.2); Glucose 92 mg/dL (74-106); Potassium 4.1 mmol/L (3.5-5.1); Protein, Total 7.4 g/dL (6.4-8.2); Sodium Level 137 mmol/L (136-145)
== END | disposition home or self-care (01) ==
LOC: POLAB3 15:12
PROVIDERS: PCP Family Medicine Geriatric Medicine; Visit Provider Family Medicine Geriatric Medicine
DX: I10 Essential (primary) hypertension (principal); E55.9 Vitamin D deficiency, unspecified; E03.9 Hypothyroidism, unspecified
CPT/HCPCS: 36415; 80053; 82306; 84443; 85025

== ENCOUNTER → 2024-03-19 | Outpatient (CLI) | payer MEDICARE, SELFPAY ==
--- NOTE | 2024-03-19 08:18 | CT_ITS ---
STUDY: CT CHEST, ABDOMEN T PELVIS WITH CONTRAST REASON FOR EXAM: Male, 83 years old. WEIGHT LOSS RADIATION DOSAGE (If Supplied By Facility): CTDIvol = ( 11.74 ) mGy, DLP = ( 922.77 ) mGycm TECHNIQUE: Transaxial imaging was performed following intravenous administration of IV 100mL Isovue-370. Individualized dose optimization techniques were used for this CT. COMPARISON: No relevant priors. FINDINGS: CHEST Linear scarring right lower lobe. There is no demonstrated pleural abnormality. Normal heart and pericardium. Normal mediastinum. Normal hilar regions. Normal unenhanced pulmonary arteries. Normal aorta arch and descending thoracic aorta. Mild dextroscoliosis of the thoracic spine with degenerative disc disease. Multiple healed left rib fractures. There is no demonstrated abnormality of the visualized upper abdomen. ABDOMEN The visualized lung bases are unremarkable. The visualized portions of the heart are within normal limits. Normal liver. Normal gallbladder and extrahepatic biliary system. Normal spleen. Normal pancreas. Normal bilateral adrenal glands. Normal right kidney. Normal left kidney. Normal visualized stomach. Normal small intestine. There are multiple colonic diverticula consistent with diverticulosis. The appendix is visualized and appears normal. There is diffuse atherosclerotic calcification of the abdominal aorta, without a demonstrated aneurysm. Normal inferior vena cava. Normal retroperitoneum. Normal abdominal wall. Mild levoscoliosis thoracic lumbar spine with degenerative disc disease. PELVIS Normal urinary bladder. Normal visualized small intestine. Normal visualized colon. There is no pelvic fluid. There is no pelvic lymphadenopathy or mass lesion. Normal visualized pelvic arteries. Normal abdominal wall. Normal osseous structures. CT/CT Chest, Abd, Pel w/Contrast IMPRESSION: Normal enhanced CT chest, abdomen T pelvis examination. Electronically Signed: Damon White MD at 17:49 EST ,
== END | disposition home or self-care (01) ==
LOC: CT 08:15
PROVIDERS: PCP Family Medicine Geriatric Medicine; Referring Provider Family Medicine Geriatric Medicine; Visit Provider Family Medicine Geriatric Medicine
DX: R63.4 Abnormal weight loss (principal)
CPT/HCPCS: 71260; 74177; Q9967

== ENCOUNTER 2024-06-05 09:22 | Day surgery (SDC) | payer MEDICARE, SELFPAY ==
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
[2024-05-31 14:56] LABS: International Normalized Ratio 1.1; Prothrombin Time (Protime)PT. 14.9 SECONDS (11.7-14.9)
[2024-05-31 14:58] LABS: Hematocrit 40.7 % (40-54); Mean Corp Hgb Conc 31.9 g/dL (32-36); Mean Corpuscular Hgb 29.5 pg (27.0-32.0); Mean Corpuscular Volume 92.5 fL (80-94); Mean Platelet Vol. 8.2 fl (6.2-12.0); Platelet Count 339 K/mm3 (150-450); RBC Distribution Width CV 11.9 % (11.6-14.6); RBC Distribution Width SD 40.6 fl (35.1-43.9); White Blood Count 8.1 K/mm3 (4.4-11.0)
[2024-05-31 15:01] LABS: Partial Thromboplast Time 29.6 Seconds (24.1-36.2)
[2024-05-31 16:14] LABS: AST(SGOT) 22 U/L (<=37); Alanine Aminotransfer ALT/SGPT 9 U/L (<=46); Albumin, Serum 4.1 g/dL (3.4-4.8); Alkaline Phosphatase 85 U/L (40-129); Bilirubin, Direct 0.15 mg/dL (0.00-0.30); Globulin 2.8 g/dL (2.2-4.2); Protein, Total 6.9 g/dL (5.9-8.4); Total Bilirubin 0.26 mg/dL (0.00-1.30)
[2024-06-05] VITALS (8 sets, daily range): BP systolic 145–162; BP diastolic 54–62; PULSE 62–80; RESP 16–18; TEMP 36–36.6; O2SAT 98–100; BMI 23.8
[2024-06-05] MEDS: 0.9% Normal Saline (1000mL) 1,000 ML 15 ML IV (09:48)
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
[2024-06-05] MEDS: Cefazolin 2 GM in Syringe IV (11:12)
[2024-06-05] MEDS: Gentamicin 80 MG/2 ML Vial (11:38)
[2024-06-05] MEDS: Bupiv/Epi 0.25% 30 ML Vial (12:20)
--- NOTE | 2024-06-05 12:22 | DCINST_ITS ---
Discharge Instructions Diet Discharge Diet: Light diet - advance as tolerated Activity Discharge Activity: Return to Normal Activity and May Shower May shower in (days): 1 Ice area for (Minutes): 30 Lifting Restrictions: No lifting over 20 pounds for 6 weeks Dressing / Incision Call your doctor if your incision/area has: Continuous Slow Oozing, Sudden In creased Bleeding, Increased Pain/ Swelling, Increased Redness, Foul Smelling Discharge and Swelling at the incision site Call your doctor if you observe: Fever of 101 or Higher Remove Dressing in: 5 days Cleanse incision/area with: Soap & Water Follow Up Care Please Follow Up With: Juancarlos Lawler MD When: 2 weeks. Please call office to schedule appointment Test Results: Test results from this visit will be discussed in further detail at your follow- up appointment, if applicable. Discharge Plan Admission Primary Reason for Your Visit: Open left inguinal hernia pair with mesh Attending Provider: Juancarlos Lawler Primary Care Provider: Smith Turcios Chi Instructions Print Language: Portuguese Discharge Orders/Prescriptions Prescriptions: New oxycodone-acetaminophen [Percocet] 5-325 mg tablet 1 tab PO Q8H PRN (Reason: pain) 4 Days Qty: 10 0RF Continued ascorbic acid (vitamin C) 500 mg capsule 1,500 mg PO DAILY thyroid (pork) [[place] Thyroid] 15 mg tablet 45 mg PO DAILY Rx Instructions: STARTED 10/03/23 lisinopril 20 mg tablet 20 mg PO QHS Referrals / Follow Up: Smith Turcios Chi, MD [Primary Care Provider] - Disposition Disposition (needs filled in before D/C Order can be placed): Home, Self Care
--- NOTE | 2024-06-05 12:26 | PCM.OPRPT ---
Problems Associated Problem List Diagnoses (1) Left inguinal hernia: Procedures Digestive [id number]-49xxx: [id number] Rerepair ing hernia reduce Operative Report (Standard) Operative Information Date of Procedure: 06/05/24 Pre-Operative Diagnosis: Left inguinal hernia Post-Operative Diagnosis: Left inguinal hernia Surgery/Procedure Performed: Open left inguinal hernia repair with mesh papeterie table assembler: Yes Program Management Professional: Patricia Barragan Tasks completed by hospital nursing assistant: Closing and Retracting Additional pharmacy affairs assistant?: No Type of Anesthesia: General and Local RN Documented Start/Stop Times: Operation Date: 06/05/24 11:00 Case Time Into Pre-Op 06/05/24 09:32 Out of Pre-Op 06/05/24 11:09 Anesthesia Start 06/05/24 11:12 Into Room 06/05/24 11:12 Procedure Start 06/05/24 11:33 Procedure End 06/05/24 12:29 Anesthesia End 06/05/24 12:32 Out of Room 06/05/24 12:32 Into Recovery 06/05/24 12:35 Procedure Start Time: 11:33 Procedure Stop Time: 12:30 Select all DRAINS/GRAFTS/IMPLANTS that apply: None Special Medications: 2 g of Ancef Estimated Blood Loss: Minimal Specimen collected: No Description of surgery: The patient is a 83-year-old male who presented my office recently with a left inguinal hernia. He had had a previous right inguinal hernia repaired via an open approach. He is also had some previous abdominal surgeries as well. I offered him hernia repair surgery. We discussed options of robotic surgery versus open repair. He opted for an open repair. We discussed the details of the planned procedure and he wished to proceed. He was brought the operating room today following informed consent. Antibiotics were given and a timeout was performed. He was placed supine on the operative table with arms outstretched on arm boards. A general anesthesia was induced. Once adequately sedated the abdomen is then prepped and draped in usual sterile manner incision was made over the left inguinal region between the pubic symphysis and the left anterior superior iliac spine. Local anesthetic was injected prior to making the skin incision. Bovie electrocautery was then used dissect down through subcutaneous tissues down to the level of the external abdominal oblique muscles. The external abdominal bleak fascia was then incised using #15 blade. This was extended superiorly and inferiorly using Metzenbaum scissors. Curved hemostats were placed on either side of the cut fascia and subcu fascial plane was developed. Next the cord structures were encircled using my index finger and then this was replaced by a Nir drain for retraction. There was no evidence of indirect sac. He had a direct hernia. This was repaired by inserting a extra-large plug and then a patch was applied on top of this. The mesh was secured using interrupted Prolene sutures. Once the mesh was laid appropriately the external abdominal bleak fascia was then closed in a running fashion using 2-0 Vicryl. 2-0 Vicryl was also used to reapproximate the subcutaneous layer. 3-0 Vicryl was used to reapproximate the subdermal layer and 4-0 Vicryl was then run in the skin. A total of 20 cc of local anesthetic was injected. Skin glue along with a Mepilex dressing was applied. He was awakened anesthesia and taken to recovery in good condition. Surgical Findings: Moderate-sized direct inguinal hernia Complications Complications: No Admit VTE Documentation VTE Present on Admission: No VTE Mechan Device Prophylaxis: SCD's VTE Pharm Prophylaxis ordered?: No Reason prophylaxis not ordered: Treatment Not Indicated
--- NOTE | 2024-06-05 12:38 | PCM.POST.ANE ---
Anesthesia: Postop Eval I Current Vital Signs Temperature: 96.8 F Pulse Rate: 80 Blood Pressure: 160/60 Respiratory Rate: 18 Pulse Ox: 99 Oxygen Delivery Method: Room Air Assessment Airway patent: Yes Spontaneous unlabored respirations: Yes Mental status: Awake and Calm nausea: No Vomiting: No Anesthesia Complication: No Fluid Hydration Crystalloid volume administer (ml): 500 Total IV fluid infused: 500 Progress Note Anesthesia document: Postop Eval 1 completed: Yes
--- NOTE | 2024-06-05 14:18 | POSTOPAN2_ITS ---
Anesthesia Postop Eval I Sum Postop Eval Completion status Anesthesia document: Postop Eval 1 completed: Yes Anesthesia Postop Eval I Summary Anesthesia Postop Eval I Summary: Anesthesia Postop Eval I: Assessment Summary Airway patent Yes 06/05/24 12:39 BUSINESS OBJECTS REPORT DEVELOPER.[email or web address] Spontaneous unlabored Yes 06/05/24 12:39 BUSINESS OBJECTS REPORT DEVELOPER.NAMRATA respirations Mental status Awake,Calm 06/05/24 12:39 BUSINESS OBJECTS REPORT DEVELOPER.GAYELI nausea No 06/05/24 12:39 BUSINESS OBJECTS REPORT DEVELOPER.GAYELI Vomiting No 06/05/24 12:39 BUSINESS OBJECTS REPORT DEVELOPER.NAMRATA Anesthesia Postop Eval I: Fluid Summary Crystalloid volume administer 500 06/05/24 12:39 BUSINESS OBJECTS REPORT DEVELOPER.JCLI (ml) Colloids volume administered ( ml) Blood Product volume administered (ml) Total IV fluid infused 500 06/05/24 12:39 BUSINESS OBJECTS REPORT DEVELOPER.NAMRATA Anesthesia Postop Eval I: Summary Notes Anesthesia Complication No 06/05/24 12:39 BUSINESS OBJECTS REPORT DEVELOPER.NAMRATA Anesthesia Complication Comment: Post-operative progress note Anesthesia: Postop Eval II Evaluation Mental status: Awake Pain Level: 2 nausea: No Vomiting: No
--- NOTE | 2024-06-05 14:18 | PCM.POSTANE2 ---
Anesthesia Postop Eval I Sum Postop Eval Completion status Anesthesia document: Postop Eval 1 completed: Yes Anesthesia Postop Eval I Summary Anesthesia Postop Eval I Summary: Anesthesia Postop Eval I: Assessment Summary Airway patent Yes 06/05/24 12:39 STABILIZING MACHINE OPERATOR.GAYELI Spontaneous unlabored Yes 06/05/24 12:39 STABILIZING MACHINE OPERATOR.NAMRATA respirations Mental status Awake,Calm 06/05/24 12:39 STABILIZING MACHINE OPERATOR.GAYELI nausea No 06/05/24 12:39 STABILIZING MACHINE OPERATOR.GAYELI Vomiting No 06/05/24 12:39 STABILIZING MACHINE OPERATOR.NAMRATA Anesthesia Postop Eval I: Fluid Summary Crystalloid volume administer 500 06/05/24 12:39 STABILIZING MACHINE OPERATOR.JCLI (ml) Colloids volume administered ( ml) Blood Product volume administered (ml) Total IV fluid infused 500 06/05/24 12:39 STABILIZING MACHINE OPERATOR.NAMRATA Anesthesia Postop Eval I: Summary Notes Anesthesia Complication No 06/05/24 12:39 STABILIZING MACHINE OPERATOR.NAMRATA Anesthesia Complication Comment: Post-operative progress note Anesthesia: Postop Eval II Evaluation Mental status: Awake Pain Level: 2 nausea: No Vomiting: No
== END 2024-06-05 13:43 | disposition home or self-care (01) ==
LOC: SDC 09:22 → AC 09:25
PROVIDERS: Anesthesiology; PCP Family Medicine Geriatric Medicine; Referring Provider Surgery; Visit Provider Surgery
PROC: (CPT 49505; principal; 2024-06-05 10:45)
DX: K40.90 Unilateral inguinal hernia, without obstruction or gangrene, not specified as recurrent (principal); I10 Essential (primary) hypertension; E07.9 Disorder of thyroid, unspecified; R23.3 Spontaneous ecchymoses; Z79.899 Other long term (current) drug therapy; Z87.891 Personal history of nicotine dependence
CPT/HCPCS: 49505; 00830; 36415; 80076; 84443; 85027; 85610; 85730; C1781; J2405

== ENCOUNTER → 2024-06-11 | Outpatient (CLI) | payer MEDICARE, SELFPAY ==
[2024-06-11 11:37] LABS: Absolute Lymphocyte Count 1.51 X10^3/uL (0.83-4.51); Absolute Neutrophil Count 3.9 X10^3/uL (2.0-7.7); Basophil# 0.03 X10^3/uL; Basophil% 0.5 % (0-1); Eosinophil# 0.34 X10^3/uL; Eosinophils% 5.3 % (0-5); Hematocrit 41.9 % (40-54); Hemoglobin 13.3 g/dL (13.0-16.5); Lymphocyte # 1.51 X10^3/ul (0.83-4.51); Lymphocyte % 23.6 % (19-41); Mean Corp Hgb Conc 31.7 g/dL (32-36); Mean Corpuscular Hgb 29.4 pg (27.0-32.0); Mean Corpuscular Volume 92.7 fL (80-94); Mean Platelet Vol. 8.2 fl (6.2-12.0); Monocyte% 9.4 % (0-10); NRBC Flagged by Analyzer 0 % (0-5); Neutrophil % 60.9 % (47-70); Platelet Count 300 K/mm3 (150-450); RBC Distribution Width CV 12.1 % (11.6-14.6); RBC Distribution Width SD 41.8 fl (35.1-43.9); Red Blood Count 4.52 M/mm3 (4.6-6.2); White Blood Count 6.4 K/mm3 (4.4-11.0)
[2024-06-11 13:23] LABS: ALB/GLOB Ratio 1.5 RATIO (0.9-2.4); AST(SGOT) 19 U/L (<=37); Alanine Aminotransfer ALT/SGPT 7 U/L (<=46); Alkaline Phosphatase 90 U/L (40-129); Anion Gap 12 (5-15); BUN 18 mg/dL (4-19); BUN/Creat Ratio 13.7 RATIO (10-20); Calcium,Total 9.3 mg/dL (7.6-11.0); Carbon Dioxide 23.9 mmol/L (21.0-32.0); Chloride 101 mmol/L (98-108); EST Glomerular Filtration Rate 54 (>60); Globulin 2.7 g/dL (2.2-4.2); Glucose 96 mg/dL (70-99); Potassium 4.6 mmol/L (3.3-5.1); Protein, Total 6.7 g/dL (5.9-8.4); Sodium Level 137 mmol/L (133-145); Vitamin D,25 Hydroxy 29.1 ng/mL (30-100)
== END | disposition home or self-care (01) ==
LOC: POLAB3 11:20
PROVIDERS: PCP Family Medicine Geriatric Medicine; Referring Provider Family Medicine Geriatric Medicine; Visit Provider Family Medicine Geriatric Medicine
DX: I10 Essential (primary) hypertension (principal); E55.9 Vitamin D deficiency, unspecified
CPT/HCPCS: 36415; 80053; 82306; 84443; 85025

== ENCOUNTER → 2024-11-26 | Outpatient (CLI) | payer MEDICARE, SELFPAY ==
[2024-11-26 15:43] LABS: Hematocrit 40.3 % (40-54); Hemoglobin 12.9 g/dL (13.0-16.5); Immature Granulocytes Count 0.020 X10^3/uL (0.0-0.0); Mean Corp Hgb Conc 32.0 g/dL (32-36); Mean Corpuscular Volume 92.6 fL (80-94); Mean Platelet Vol. 8.2 fl (6.2-12.0); NRBC Flagged by Analyzer 0 % (0-5); Platelet Count 325 K/mm3 (150-450); RBC Distribution Width CV 12.3 % (11.6-14.6); RBC Distribution Width SD 41.9 fl (35.1-43.9); Red Blood Count 4.35 M/mm3 (4.6-6.2); White Blood Count 6.4 K/mm3 (4.4-11.0)
[2024-11-26 17:07] LABS: AST(SGOT) 21 U/L (<=37); Alanine Aminotransfer ALT/SGPT 10 U/L (<=46); Albumin, Serum 4.1 g/dL (3.4-4.8); Alkaline Phosphatase 77 U/L (40-129); Anion Gap 11 (5-15); BUN 21 mg/dL (4-19); BUN/Creat Ratio 14.2 RATIO (10-20); Calcium,Total 9.7 mg/dL (7.6-11.0); Carbon Dioxide 25.1 mmol/L (21.0-32.0); Chloride 101 mmol/L (98-108); Cholesterol 135 mg/dL (<=200); Globulin 2.8 g/dL (2.2-4.2); Glucose 90 mg/dL (70-99); Low Density Lipoprotein Calc. 74 mg/dL; Potassium 4.8 mmol/L (3.3-5.1); Triglycerides 66 mg/dL; Very Low Density Lipoprotein 13 mg/dL (5-40); Vitamin D,25 Hydroxy 38.7 ng/mL (30-100); cholesterol:hdl ratio screen 2.85
[2024-11-26 23:20] LABS: Xtra Tube Kwok EXTRA TUBE
== END | disposition home or self-care (01) ==
LOC: POLAB3 15:19
PROVIDERS: PCP Family Medicine Geriatric Medicine; Visit Provider Family Medicine Geriatric Medicine
DX: I10 Essential (primary) hypertension (principal); E55.9 Vitamin D deficiency, unspecified; E78.5 Hyperlipidemia, unspecified
CPT/HCPCS: 36415; 80053; 80061; 82306; 84443; 85025